=== PATIENT | male | born 1930 | race Caucasian/White ===

== ENCOUNTER → 2016-10-25 | Outpatient (CLI) | payer OTHER, MEDICARE ==
[2016-10-25 10:20] LABS: HEMATOCRIT 45.4 % (37.9-51.0); HEMOGLOBIN 15.1 g/dL (13.5-17.0); HGB HCT DIFFERENCE -0.1; MEAN CORPUSCULAR HEMOGLOBIN 31.2 pg (27.0-33.4); MEAN CORPUSCULAR HGB CONC 33.2 g/dL (32.0-36.0); MEAN CORPUSCULAR VOLUME 94 fl (80-97); RED BLOOD COUNT 4.85 10^6/uL (4.35-5.55); RED CELL DISTRIBUTION WIDTH 13.9 % (11.5-14.0); WHITE BLOOD COUNT 6.9 10^3/uL (4.0-10.5)
[2016-10-25 10:43] LABS: ALANINE AMINOTRANSFERASE 25 U/L (21-72); ALBUMIN 3.7 g/dL (3.5-5.0); ALKALINE PHOSPHATASE 75 U/L (38-126); ANION GAP 8 (5-19); ASPARTATE AMINO TRANSFERASE 23 U/L (17-59); BILIRUBIN,DIRECT 0.3 mg/dL (0.0-0.4); BILIRUBIN,TOTAL 0.8 mg/dL (0.2-1.3); BLOOD UREA NITROGEN 21 mg/dL (7-20); CALCIUM 8.9 mg/dL (8.4-10.2); CARBON DIOXIDE 24 mmol/L (22-30); CHLORIDE 110 mmol/L (98-107); CREATININE RESULT 0.81 mg/dL (0.52-1.25); GLUCOSE 91 mg/dL (75-110); POTASSIUM 4.9 mmol/L (3.6-5.0); SODIUM 141.9 mmol/L (137-145); TOTAL PROTEIN 6.6 g/dL (6.3-8.2)
[2016-10-26 06:38] LABS: THYROXINE (T4) 6.1 ug/dL (4.5-12.0)
== END ==
LOC: OD 09:33
PROVIDERS: ATTEND Specialist
DX: F03.90 Unspecified dementia, unspecified severity, without behavioral disturbance, psychotic disturbance, mood disturbance, and anxiety (principal)
CPT/HCPCS: 36415; 80053; 82607; 84436; 84443; 84480; 85027

== ENCOUNTER 2017-02-02 18:29 | Emergency (ER) | payer OTHER, MEDICARE ==
--- NOTE | 2017-02-02 19:29 | ER Document Report ---
ED General - General Stated Complaint: EYE PROBLEM Time Seen by Provider: 02/02/17 19:06 Notes: Patient is an 86-year-old male comes emergency department for chief complaint of cough which is congested, he comes from [facility] long-term care [facility] by EMS. Patient is non-smoker, no fever reported, when asked why he is here he states he does not know what his eyes have been itchy at times over the past 3 months although he denies any eye irritation, visual loss, or pain at this time. Past medical history of diabetes, CHF, dementia. TRAVEL OUTSIDE OF THE [place] IN LAST 30 DAYS: No - Related Data Allergies/Adverse Reactions: codeine [Codeine] Allergy (Verified 02/02/17 19:35) Penicillins Allergy (Verified 02/02/17 19:35) Past Medical History - General Information source: Patient - Social History Smoking Status: Former Smoker Frequency of alcohol use: None Drug Abuse: None Lives with: Jail Family History: Reviewed & Not Pertinent, Malignancy - Past Medical History Cardiac Medical History: Reports: Hx Atrial Fibrillation, Hx Congestive Heart Failure - Diastolic dysfunction, Hx Coronary Artery Disease, Hx DVT - Left lower extremity, Hx Heart Attack, Hx Hypercholesterolemia, Hx Hypertension Pulmonary Medical History: Reports: Hx COPD Endocrine Medical History: Reports: Hx Diabetes Mellitus Type 2 Psychiatric Medical History: Reports: Hx Dementia, Hx Depression Past Surgical History: Reports: Hx Cardiac Catheterization - 2009, Hx Cholecystectomy, Hx Coronary Stent - 2009 - Immunizations Hx Diphtheria, Pertussis, Tetanus Vaccination: - unknown Hx Pneumococcal Vaccination: 04/17/14 Review of Systems - Review of Systems Constitutional: No symptoms reported EENT: See HPI Cardiovascular: No symptoms reported Respiratory: See HPI Gastrointestinal: No symptoms reported Genitourinary: No symptoms reported Male Genitourinary: No symptoms reported Musculoskeletal: No symptoms reported Skin: No symptoms reported Hematologic/Lymphatic: No symptoms reported Neurological/Psychological: No symptoms reported Physical Exam - Vital signs Vitals: Temp Pulse Resp BP Pulse Ox 98.8 F 75 16 111/56 L 95 02/02/17 20:16 02/02/17 20:16 02/02/17 20:16 02/02/17 20:16 02/02/17 20:16 Interpretation: Normal - General General appearance: Appears well, Alert In distress: None - HEENT Head: Normocephalic, Atraumatic Eyes: Normal. No: Pale conjunctiva, Periorbital ecchymosis, Periorbital edema, Scleral icterus, Tears Conjunctiva: Normal. No: Injected, Purulent discharge Extraocular movements intact: Yes Eyelashes: Normal. No: Matted Pupils: PERRL Nasal: Normal Mouth/Lips: Normal Mucous membranes: Normal Pharynx: Normal Neck: Normal - Respiratory Respiratory status: No respiratory distress. No: Labored, Tachypnea Chest status: Nontender Breath sounds: Nonproductive cough - Occasional episodes of nonproductive cough with some sounds of chest congestion, lung auscultation is clear, no wheezing, rhonchi, stridor, rales Chest palpation: Normal - Cardiovascular Rhythm: Regular Heart sounds: Normal auscultation Murmur: No - Abdominal Inspection: Normal Distension: No distension Bowel sounds: Normal Tenderness: Nontender Organomegaly: No organomegaly - Back Back: Normal, Nontender - Extremities General upper extremity: Normal inspection, Nontender, Normal color, Normal ROM , Normal temperature General lower extremity: Normal inspection, Nontender, Normal color, Normal ROM , Normal temperature, Normal weight bearing. No: Jaden's sign - Neurological Neuro grossly intact: Yes Cognition: Normal Orientation: AAOx4 [place] Coma Scale Eye Opening: Spontaneous [place] Coma Scale Verbal: Oriented [place] Coma Scale Motor: Obeys Commands [place] Coma Scale Total: 15 Speech: Normal Motor strength normal: LUE, RUE, LLE, RLE Sensory: Normal - Psychological Associated symptoms: Normal affect, Normal mood - Skin Skin Temperature: Warm Skin Moisture: Dry Skin Color: Normal Course - Re-evaluation Re-evalutation: Patient does have episodes of a congested cough on examination, lungs are clear otherwise, no hypoxia, no respiratory distress. No discharge, swelling, or other abnormalities noted on examination of his eyes. He denies any current eye complaints. Chest x-ray unremarkable, CBC, chemistry unremarkable, on reevaluation patient remains unchanged with coughing episodes but no signs of respiratory distress and no other abnormalities. Because of patient's age and unknown duration of persisting cough patient will be covered with doxycycline antibiotic for potential underlying developing pneumonia although this is most likely upper respiratory in nature. Patient will be discharged back to custodial facility with return precautions. - Vital Signs Vital signs: Temp Pulse Resp BP Pulse Ox 98.1 F 69 16 121/90 H 98 02/02/17 22:38 10/19/17 22:38 02/02/17 22:38 02/02/17 22:38 02/02/17 22:38 - Laboratory Result Diagrams: 02/02/17 19:57 02/02/17 19:57 Laboratory results interpreted by me: 02/02/17 02/02/17 02/02/17 19:57 19:57 19:57 WBC 10.8 H BUN 22 H Urine Blood SMALL H Discharge - Discharge Clinical Impression: Nonproductive cough Condition: Stable Disposition: HOME, SELF-CARE Additional Instructions: No concerning vital signs no concerning, findings on chest x-ray, unremarkable laboratory workup, influenza test negative. Because of patient's age and his ongoing coughing episodes (including on evaluation here in the emergency department), give patient the doxycycline antibiotic to treat potential developing pneumonia as prescribed. Follow-up with his primary care provider. Return to emergency department for any concerning or worsening symptoms including rapid or labored breathing, spiking fever, or any other concerning symptoms. Prescriptions: Doxycycline Hyclate 100 mg PO BID #14 capsule
--- NOTE | 2017-02-02 20:07 | RADIOLOGY REPORT (SQ) ---
EXAM DESCRIPTION: CHEST PA/LAT COMPLETED DATE/TIME: 02/02/2017 7:46 pm REASON FOR STUDY: productive cough COMPARISON: 01/17/2016. EXAM PARAMETERS: NUMBER OF VIEWS: two views TECHNIQUE: Digital Frontal and Lateral radiographic views of the chest acquired. RADIATION DOSE: NA LIMITATIONS: none FINDINGS: LUNGS AND PLEURA: No opacities, masses or pneumothorax. No pleural effusion. MEDIASTINUM AND HILAR STRUCTURES: No masses or contour abnormalities. HEART AND VASCULAR STRUCTURES: Heart normal size. No evidence for failure. BONES: No acute findings. HARDWARE: None in the chest. OTHER: No other significant finding. IMPRESSION: NO SIGNIFICANT RADIOGRAPHIC FINDING IN THE CHEST. TECHNICAL DOCUMENTATION: JOB ID: [id number] [employer]- All Rights Reserved
[2017-02-02 20:16] LABS: ABSOLUTE BASOPHILS # (AUTO) 0.1 10^3/uL (0.0-0.2); ABSOLUTE EOSINOPHILS # (AUTO) 0.1 10^3/uL (0.0-0.6); ABSOLUTE MONOCYTES (AUTO) 0.8 10^3/uL (0.1-1.4); ABSOLUTE NEUT (AUTO) 6.8 10^3/uL (1.7-8.2); BASOPHILS % (AUTO) 0.6 % (0-2); HEMATOCRIT 44.8 % (37.9-51.0); HEMOGLOBIN 15.5 g/dL (13.5-17.0); HGB HCT DIFFERENCE 1.7; MEAN CORPUSCULAR HEMOGLOBIN 31.6 pg (27.0-33.4); MEAN CORPUSCULAR HGB CONC 34.7 g/dL (32.0-36.0); MEAN CORPUSCULAR VOLUME 91 fl (80-97); RED CELL DISTRIBUTION WIDTH 13.8 % (11.5-14.0); SEGMENTED NEUTROPHILS % (AUTO) 63.4 % (42-78); WHITE BLOOD COUNT 10.8 10^3/uL (4.0-10.5)
[2017-02-02 20:20] LABS: APPEARANCE,URINE CLEAR; BILIRUBIN,URINE NEGATIVE (NEGATIVE); GLUCOSE, URINE NEGATIVE (NEGATIVE); KETONES,URINE NEGATIVE (NEGATIVE); LEUKOCYTE ESTERASE,URINE NEGATIVE (NEGATIVE); NITRITE,URINE NEGATIVE (NEGATIVE); PROTEIN,URINE NEGATIVE (NEGATIVE); URINE SPECIFIC GRAVITY 1.008; UROBILINOGEN,URINE NEGATIVE mg/dL (<2.0)
[2017-02-02 20:40] LABS: ANION GAP 14 (5-19); BLOOD UREA NITROGEN 22 mg/dL (7-20); CALCIUM 9.1 mg/dL (8.4-10.2); CARBON DIOXIDE 23 mmol/L (22-30); CHLORIDE 106 mmol/L (98-107); CREATININE RESULT 0.99 mg/dL (0.52-1.25); GLUCOSE 107 mg/dL (75-110); POTASSIUM 4.3 mmol/L (3.6-5.0); SODIUM 143.4 mmol/L (137-145)
[2017-02-02 22:41] VITALS: BP 121/90
== END 2017-02-02 22:38 | disposition home or self-care (01) ==
LOC: ER 18:29
DX: R05 Cough (principal); J44.9 Chronic obstructive pulmonary disease, unspecified; E11.9 Type 2 diabetes mellitus without complications; I48.91 Unspecified atrial fibrillation; I50.9 Heart failure, unspecified; I25.10 Atherosclerotic heart disease of native coronary artery without angina pectoris; E78.00 Pure hypercholesterolemia, unspecified; I11.0 Hypertensive heart disease with heart failure; Z90.49 Acquired absence of other specified parts of digestive tract; Z88.6 Allergy status to analgesic agent; Z88.0 Allergy status to penicillin; Z86.718 Personal history of other venous thrombosis and embolism; I25.2 Old myocardial infarction
CPT/HCPCS: 36415; 71020; 80048; 81001; 85025; 87804; 99283

== ENCOUNTER 2017-05-02 17:11 | Emergency (ER) | payer OTHER, MEDICARE ==
[2017-05-02 17:40] LABS: APPEARANCE,URINE SLIGHTLY-CLOUDY; BILIRUBIN,URINE NEGATIVE (NEGATIVE); COLOR,URINE YELLOW; GLUCOSE, URINE NEGATIVE (NEGATIVE); KETONES,URINE NEGATIVE (NEGATIVE); LEUKOCYTE ESTERASE,URINE NEGATIVE (NEGATIVE); NITRITE,URINE NEGATIVE (NEGATIVE); PROTEIN,URINE NEGATIVE (NEGATIVE); URINE SPECIFIC GRAVITY 1.023
--- NOTE | 2017-05-02 19:22 | ER Document Report ---
ED General - General Chief Complaint: Altered Mental Status Stated Complaint: ALTERED MENTAL STATUS Time Seen by Provider: 05/02/17 19:08 Notes: Patient is a 86-year-old male that comes emergency department for chief complaint of agitation. He comes from [facility] by EMS. EMS reports the patient is at his baseline with dementia, has had no fever, no vomiting, no other complaints other than becoming very agitated prompting his visit to the emergency department. He states "I'm here because I agreed to come". He denies any complaints or any locations of pain. He is oriented to place, person, but not to events prior to coming here. Other than dementia patient also has a history of diabetes, CHF, schizoaffective disorder with "paranoid episodes". He has DO NOT RESUSCITATE paperwork with his chart brought tonjose f. TRAVEL OUTSIDE OF THE [place] IN LAST 30 DAYS: No - Related Data Allergies/Adverse Reactions: codeine [Codeine] Allergy (Verified 05/02/17 18:17) Penicillins Allergy (Verified 05/02/17 18:17) Past Medical History - General Information source: Patient - Social History Smoking Status: Never Smoker Chew tobacco use (# tins/day): No Frequency of alcohol use: None Drug Abuse: None Lives with: [facility] Family History: Reviewed & Not Pertinent, Malignancy Patient has suicidal ideation: No Patient has homicidal ideation: No - Past Medical History Cardiac Medical History: Reports: Hx Atrial Fibrillation, Hx Congestive Heart Failure - Diastolic dysfunction, Hx Coronary Artery Disease, Hx DVT - Left lower extremity, Hx Heart Attack, Hx Hypercholesterolemia, Hx Hypertension Pulmonary Medical History: Reports: Hx COPD Endocrine Medical History: Reports: Hx Diabetes Mellitus Type 2 Renal/ Medical History: Denies: Hx Peritoneal Dialysis Psychiatric Medical History: Reports: Hx Dementia, Hx Depression Past Surgical History: Reports: Hx Cardiac Catheterization - 2009, Hx Cholecystectomy, Hx Coronary Stent - 2009 - Immunizations Immunizations up to date: Yes Hx Diphtheria, Pertussis, Tetanus Vaccination: Yes - unknown Hx Pneumococcal Vaccination: 04/17/14 Review of Systems - Review of Systems Constitutional: See HPI EENT: No symptoms reported Cardiovascular: No symptoms reported Respiratory: No symptoms reported Gastrointestinal: No symptoms reported Genitourinary: No symptoms reported Male Genitourinary: No symptoms reported Musculoskeletal: No symptoms reported Skin: No symptoms reported Hematologic/Lymphatic: No symptoms reported Neurological/Psychological: See HPI Physical Exam - Vital signs Vitals: Temp Pulse Resp BP Pulse Ox 98.0 F 75 20 135/88 H 98 05/02/17 17:27 05/02/17 17:27 05/02/17 17:27 05/02/17 17:27 05/02/17 17:27 Interpretation: Normal - General General appearance: Appears well, Alert In distress: None - HEENT Head: Normocephalic, Atraumatic Eyes: Normal Conjunctiva: Normal Extraocular movements intact: Yes Eyelashes: Normal Pupils: PERRL Nasal: Normal Mouth/Lips: Normal Mucous membranes: Normal Pharynx: Normal Neck: Normal - Respiratory Respiratory status: No respiratory distress Chest status: Nontender Breath sounds: Normal. No: Decreased air movement, Wheezing Chest palpation: Normal - Cardiovascular Rhythm: Regular. No: Tachycardia Heart sounds: Normal auscultation, S1 appreciated, S2 appreciated Murmur: No - Abdominal Inspection: Normal Distension: No distension Bowel sounds: Normal Tenderness: Nontender Organomegaly: No organomegaly - Back Back: Normal, Nontender. No: Tender - Extremities General upper extremity: Normal inspection, Nontender, Normal ROM, Normal strength General lower extremity: Normal inspection, Nontender, Normal ROM, Normal strength - Neurological Neuro grossly intact: Yes Cognition: Normal Orientation: AAOx4 [place] Coma Scale Eye Opening: Spontaneous [place] Coma Scale Verbal: Oriented [place] Coma Scale Motor: Obeys Commands [place] Coma Scale Total: 15 Speech: Normal Motor strength normal: LUE, RUE, LLE, RLE Sensory: Normal - Psychological Associated symptoms: Normal affect, Normal mood - Skin Skin Temperature: Warm Skin Moisture: Dry Skin Color: Normal Course - Re-evaluation Re-evalutation: Patient alert, cooperative, responsive, is oriented to place, person, however he cannot give me specific details about today. He cooperates with a normal neurological exam otherwise. Vital signs are unremarkable. CBC unremarkable, chemistry unremarkable, urinalysis unremarkable. Patient is at baseline reportedly. I do not see indication for CAT scan of the head at this time or additional workup. Patient only asking for a drink, states he is fine otherwise and he is ready to leave. Patient provided with a drink, discussed his workup, discussed return precautions, these will be written as well, patient will be discharged back to long-term care facility. - Vital Signs Vital signs: Temp Pulse Resp BP Pulse Ox 98.0 F 89 20 142/93 H 97 05/02/17 22:08 05/02/17 22:08 05/02/17 22:08 05/02/17 22:08 05/02/17 22:08 - Laboratory Result Diagrams: 05/02/17 17:50 05/02/17 17:50 Laboratory results interpreted by me: 05/02/17 05/02/17 17:21 17:50 BUN 27 H Urine Urobilinogen 2.0 H Urine Ascorbic Acid 40 H Discharge - Discharge Clinical Impression: Agitation Condition: Stable Disposition: HOME, SELF-CARE Additional Instructions: No concerning abnormalities are noted on evaluation and laboratory workup. Discussed with his primary provider additional treatments for episodes of agitation. Return the emergency department for any concerning symptoms including fever, vomiting, altered mental status, difficulty breathing, or any other concerning symptoms.
[2017-05-02 19:50] LABS: ABSOLUTE EOSINOPHILS # (AUTO) 0.1 10^3/uL (0.0-0.6); ABSOLUTE MONOCYTES (AUTO) 0.7 10^3/uL (0.1-1.4); ABSOLUTE NEUT (AUTO) 4.6 10^3/uL (1.7-8.2); ANION GAP 9 (5-19); BASOPHILS % (AUTO) 0.5 % (0-2); BLOOD UREA NITROGEN 27 mg/dL (7-20); CALCIUM 9.4 mg/dL (8.4-10.2); CARBON DIOXIDE 30 mmol/L (22-30); CHLORIDE 104 mmol/L (98-107); EOSINOPHILS % (AUTO) 0.9 % (0-6); GLUCOSE 98 mg/dL (75-110); HEMATOCRIT 46.6 % (37.9-51.0); HEMOGLOBIN 15.9 g/dL (13.5-17.0); LYMPHOCYTES % (AUTO) 35.6 % (13-45); MEAN CORPUSCULAR HEMOGLOBIN 31.4 pg (27.0-33.4); MEAN CORPUSCULAR HGB CONC 34.2 g/dL (32.0-36.0); MEAN CORPUSCULAR VOLUME 92 fl (80-97); MONOCYTES % (AUTO) 8.1 % (3-13); PLATELET COUNT 211 10^3/uL (150-450); POTASSIUM 4.7 mmol/L (3.6-5.0); RED BLOOD COUNT 5.08 10^6/uL (4.35-5.55); SEGMENTED NEUTROPHILS % (AUTO) 54.9 % (42-78); SODIUM 142.7 mmol/L (137-145); TOTAL CELLS COUNTED % (AUTO) 100 %; WHITE BLOOD COUNT 8.4 10^3/uL (4.0-10.5)
[2017-05-02 22:03] VITALS: BP 142/93
== END 2017-05-02 22:21 | disposition home or self-care (01) ==
LOC: ER 17:11
DX: R45.1 Restlessness and agitation (principal); R41.82 Altered mental status, unspecified; J44.9 Chronic obstructive pulmonary disease, unspecified; E11.9 Type 2 diabetes mellitus without complications; I48.91 Unspecified atrial fibrillation; I50.9 Heart failure, unspecified; Z86.718 Personal history of other venous thrombosis and embolism; Z88.0 Allergy status to penicillin; Z88.6 Allergy status to analgesic agent
CPT/HCPCS: 36415; 80048; 81001; 85025; 99285

== ENCOUNTER 2017-05-11 10:42 | Emergency (ER) | payer OTHER, MEDICARE ==
--- NOTE | 2017-05-11 10:50 | ER Document Report ---
ED General - General Stated Complaint: WEAKNESS Time Seen by Provider: 05/11/17 10:50 Mode of Arrival: Medic Information source: Patient Notes: 86 yr old male hx of dementia presents with care facilities concerns that he is not taking his medications. pt notes 3 days ago he decided he wanted ot and that his plan is to not eat or take meds. TRAVEL OUTSIDE OF THE [place] IN LAST 30 DAYS: No - HPI Onset: Other Onset/Duration: Persistent Quality of pain: No pain Severity: None Pain Level: Denies Associated symptoms: Other Exacerbated by: Denies Relieved by: Denies Similar symptoms previously: Yes Recently seen / treated by doctor: Yes - Related Data Allergies/Adverse Reactions: codeine [Codeine] Allergy (Verified 05/02/17 18:17) NSAIDS (Non-Steroidal Anti-Inflamma Allergy (Verified 05/11/17 10:57) Penicillins Allergy (Verified 05/02/17 18:17) Past Medical History - Social History Smoking Status: Never Smoker Cigarette use (# per day): No Chew tobacco use (# tins/day): No Smoking Education Provided: No Family History: Reviewed & Not Pertinent, Malignancy Patient has suicidal ideation: Yes Patient has homicidal ideation: No - Past Medical History Cardiac Medical History: Reports: Hx Atrial Fibrillation, Hx Congestive Heart Failure - Diastolic dysfunction, Hx Coronary Artery Disease, Hx DVT - Left lower extremity, Hx Heart Attack, Hx Hypercholesterolemia, Hx Hypertension Pulmonary Medical History: Reports: Hx COPD Endocrine Medical History: Reports: Hx Diabetes Mellitus Type 2 Renal/ Medical History: Denies: Hx Peritoneal Dialysis Psychiatric Medical History: Reports: Hx Dementia, Hx Depression Past Surgical History: Reports: Hx Cardiac Catheterization - 2009, Hx Cholecystectomy, Hx Coronary Stent - 2009 - Immunizations Immunizations up to date: Yes Hx Diphtheria, Pertussis, Tetanus Vaccination: Yes - unknown Hx Pneumococcal Vaccination: 04/17/14 Review of Systems - Review of Systems Notes: REVIEW OF SYSTEMS: CONSTITUTIONAL : Denies fever, chills, or sweats. Denies recent illness. EENT: Denies eye, ear, throat, or mouth pain or symptoms. Denies nasal or sinus congestion or discharge. Denies throat, tongue, or mouth swelling or difficulty swallowing. CARDIOVASCULAR: Denies chest pain. Denies palpitations or racing or irregular heart beat. Denies ankle edema. RESPIRATORY: Denies cough, cold, or chest congestion. Denies shortness of breath, difficulty breathing, or wheezing. GASTROINTESTINAL: Denies abdominal pain or distention. Denies nausea, vomiting , or diarrhea. Denies blood in vomitus, stools, or per rectum. Denies black, tarry stools. Denies constipation. GENITOURINARY: Denies difficulty urinating, painful urination, burning, frequency, blood in urine, or discharge. MUSCULOSKELETAL: Denies back or neck pain or stiffness. Denies joint pain or swelling. SKIN: Denies rash, lesions or sores. HEMATOLOGIC : Denies easy bruising or bleeding. LYMPHATIC: Denies swollen, enlarged glands. NEUROLOGICAL: hx of dementia PSYCHIATRIC: Denies anxiety or stress. Denies depression, suicidal ideation, or homicidal ideation. ALL OTHER SYSTEMS REVIEWED AND NEGATIVE. Dictation was performed using [employer] voice recognition software PHYSICAL EXAMINATION: GENERAL: Well-appearing, well-nourished and in no acute distress. HEAD: Atraumatic, normocephalic. EYES: Pupils equal round and reactive to light, extraocular movements intact, sclera anicteric, conjunctiva are normal. ENT: Nares patent, oropharynx clear without exudates. Moist mucous membranes. NECK: Normal range of motion, supple without lymphadenopathy LUNGS: Breath sounds clear to auscultation bilaterally and equal. No wheezes rales or rhonchi. HEART: Regular rate and rhythm without murmurs ABDOMEN: Soft, nontender, nondistended abdomen. No guarding, no rebound. No masses appreciated. Musculoskeletal: Normal range of motion, no pitting or edema. No cyanosis. NEUROLOGICAL: tremors noted SKIN: Warm, Dry, normal turgor, no rashes or lesions noted. Physical Exam - Vital signs Vitals: Pulse Resp BP 78 18 145/89 H 05/11/17 10:51 05/11/17 10:51 05/11/17 10:51 Course - Re-evaluation Re-evalutation: 05/11/17 11:13 pt is alert, hes oriented to person, place. pt notes he wants to end it, has a DNR . I have requested mental health to evaluate the patient. 05/11/17 11:29 Patient is noted to be eating as documented by nursing staff crackers sandwiches pudding juice 05/11/17 12:58 Patient evaluated by mental health, they agree that patient is alert, he is eating and has no signs of wanting ot hurt himself they request medication change, decrease of risperidone which was recently increased and may have caused these issues After performing a Medical Screening Examination, I estimate there is LOW risk for any life threatening mental health issues. At this time the patient looks extremely well and has not attempted severe self harm. I have reevaluated this patient multiple times and no significant life threatening changes are noted. The patient and I have discussed the diagnosis and risks, and we agree with discharging home with close follow-up with the understanding that symptoms and presentations can change. We also discussed returning to the Emergency Department immediately if new or worsening symptoms occur. We have discussed the symptoms which are most concerning (hallucinations, thoughts or actions of self harm or harm to others) that necessitate immediate return. - Vital Signs Vital signs: Temp Pulse Resp BP Pulse Ox 78 18 145/89 H 05/11/17 10:51 05/11/17 10:51 05/11/17 10:51 - Laboratory Result Diagrams: 05/11/17 11:20 05/11/17 11:20 Laboratory results interpreted by me: 05/11/17 11:20 Chloride 109 H BUN 24 H ALT 19 L Discharge - Discharge Clinical Impression: Agitation Dementia Qualifiers: Dementia type: unspecified type Dementia behavioral disturbance: without behavioral disturbance Qualified Code(s): F03.90 - Unspecified dementia without behavioral disturbance Condition: Stable Disposition: HOME, SELF-CARE Additional Instructions: Please decrease the risperidone dosage as written. Patient has been eating and shows no sign of self-harm gesture Prescriptions: Buspirone HCl [Buspar 10 mg Tablet] 10 mg PO QHS #30 tab Buspirone HCl [Buspar 5 mg Tablet] 1 tab PO QAM #30 tab Carbamazepine [Tegretol 200 Mg Tablet] 200 mg PO BID #60 tablet Risperidone [Risperdal 0.25 Mg Tablet] 0.25 mg PO BID #60 tablet
[2017-05-11 11:38] LABS: ABSOLUTE EOSINOPHILS # (AUTO) 0.1 10^3/uL (0.0-0.6); ABSOLUTE LYMPHOCYTES (AUTO) 2.6 10^3/uL (0.5-4.7); ABSOLUTE MONOCYTES (AUTO) 0.5 10^3/uL (0.1-1.4); ABSOLUTE NEUT (AUTO) 4.4 10^3/uL (1.7-8.2); BASOPHILS % (AUTO) 0.4 % (0-2); EOSINOPHILS % (AUTO) 1.3 % (0-6); HEMATOCRIT 46.7 % (37.9-51.0); HEMOGLOBIN 15.9 g/dL (13.5-17.0); LYMPHOCYTES % (AUTO) 34.3 % (13-45); MEAN CORPUSCULAR HEMOGLOBIN 31.2 pg (27.0-33.4); MEAN CORPUSCULAR HGB CONC 34.1 g/dL (32.0-36.0); MEAN CORPUSCULAR VOLUME 92 fl (80-97); MONOCYTES % (AUTO) 7.1 % (3-13); PLATELET COUNT 164 10^3/uL (150-450); RED BLOOD COUNT 5.11 10^6/uL (4.35-5.55); RED CELL DISTRIBUTION WIDTH 13.2 % (11.5-14.0); SEGMENTED NEUTROPHILS % (AUTO) 56.9 % (42-78); TOTAL CELLS COUNTED % (AUTO) 100 %; WHITE BLOOD COUNT 7.7 10^3/uL (4.0-10.5)
[2017-05-11 11:57] LABS: ALANINE AMINOTRANSFERASE 19 U/L (21-72); ALBUMIN 3.6 g/dL (3.5-5.0); ALKALINE PHOSPHATASE 71 U/L (38-126); ANION GAP 6 (5-19); ASPARTATE AMINO TRANSFERASE 23 U/L (17-59); BILIRUBIN,DIRECT 0.2 mg/dL (0.0-0.4); BLOOD UREA NITROGEN 24 mg/dL (7-20); CALCIUM 9.2 mg/dL (8.4-10.2); CARBON DIOXIDE 27 mmol/L (22-30); CHLORIDE 109 mmol/L (98-107); GLUCOSE 100 mg/dL (75-110); POTASSIUM 4.3 mmol/L (3.6-5.0); TOTAL PROTEIN 6.4 g/dL (6.3-8.2)
--- NOTE | 2017-05-11 13:12 | PSYCHOLOGICAL NOTE ---
Psych Note - Psych Note Psych Note: Reason for Consult: Suicidal Ideation Consents given: None Patient is an 86 year old male who presented to the Emergency Department via EMS from [facility], his care home care facility. Facility staff reported the patient has had a definite change in mental status within the last week. They reported patient has been making statements about his home being taken away and the facility "putting him out." The facility staff stated the patient started saying "I want to ." Facility staff reported the patient is refusing to eat or take his medications since yesterday. They stated the patient 's brother and sister, who live in [place], visited on Monday and the patient seemed "happier" and had increased affect while they were here. Staff reported the patient has a history of "paranoia, restless legs, dementia and diabetes." Patient was sitting upright in bed eating a snack with an open drink at his side. Patient was pleasant and calm. Patient stated he is hard of hearing. Patient was alert and oriented to person, place, and circumstance. Mood was calm with congruent affect. Patient denied current suicidal/homicidal ideation, intent or plan. He did not appear to be responding to internal stimuli and no delusions or psychosis noted. Patient has a diagnosis of dementia. 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 He does not meet [place] G.S 122C IVC criteria. Patient is not considered a danger to himself or others at this time. No delusions or psychosis were observed. Patient denied suicidal/ homicidal ideation, intent or plan. Patient lives in a care home care facility and per [place] state statue he is monitored 07/11 and does not have access to medications or weapons. Patient has a history of dementia. Medication recommendations were made to reduce his dose of Risperdone to 0.25mg BID and add Tegretol 200mg BID and Buspar 5mg qa and 10mg qhs. Consulted with Dr. Garcia regarding the care and management of this patient. ED physician in agreement with recommendations and disposition.
[2017-05-11 14:31] VITALS: BP 135/73
== END 2017-05-11 14:31 | disposition home health service (06) ==
LOC: ER 10:42
DX: R45.1 Restlessness and agitation (principal); F03.90 Unspecified dementia, unspecified severity, without behavioral disturbance, psychotic disturbance, mood disturbance, and anxiety; R53.1 Weakness
CPT/HCPCS: 36415; 80053; 85025; 99285

== ENCOUNTER 2017-07-09 18:00 | Emergency (ER) | payer OTHER, MEDICARE ==
[2017-07-09 19:09] LABS: ABSOLUTE MONOCYTES (AUTO) 0.4 10^3/uL (0.1-1.4); ABSOLUTE NEUT (AUTO) 3.7 10^3/uL (1.7-8.2); BASOPHILS % (AUTO) 0.4 % (0-2); EOSINOPHILS % (AUTO) 0.7 % (0-6); HEMATOCRIT 47.7 % (37.9-51.0); LYMPHOCYTES % (AUTO) 32.5 % (13-45); MEAN CORPUSCULAR HEMOGLOBIN 30.8 pg (27.0-33.4); MEAN CORPUSCULAR HGB CONC 33.6 g/dL (32.0-36.0); MEAN CORPUSCULAR VOLUME 92 fl (80-97); MONOCYTES % (AUTO) 6.8 % (3-13); PLATELET COUNT 173 10^3/uL (150-450); RED CELL DISTRIBUTION WIDTH 13.9 % (11.5-14.0); SEGMENTED NEUTROPHILS % (AUTO) 59.6 % (42-78); TOTAL CELLS COUNTED % (AUTO) 100 %; WHITE BLOOD COUNT 6.2 10^3/uL (4.0-10.5)
--- NOTE | 2017-07-09 19:25 | ER Document Report ---
ED General - General Chief Complaint: Psych Problem Stated Complaint: ALTERED MENTAL STATUS Time Seen by Provider: 07/09/17 18:58 Cannot obtain history due to: Dementia, Other - Speech impairment Notes: Patient is an 86-year-old male with past history of dementia who presents with facility concerns that he has become more agitated for the past 1 week. The patient is demented, has impaired speech at baseline but denies any acute complaints. EMS reports the patient was initially somewhat agitated when they got there but was easily calmed down when they listened to him. History is otherwise limited secondary to patient's baseline cognitive status. TRAVEL OUTSIDE OF THE [place] IN LAST 30 DAYS: No - Related Data Allergies/Adverse Reactions: codeine [Codeine] Allergy (Verified 07/09/17 18:10) NSAIDS (Non-Steroidal Anti-Inflamma Allergy (Verified 07/09/17 18:10) Penicillins Allergy (Verified 07/09/17 18:10) Past Medical History - General Information source: Patient, Transfer Record, Emergency Med Personnel Cannot obtain history due to: Dementia - Social History Smoking Status: Never Smoker Chew tobacco use (# tins/day): No Frequency of alcohol use: None Drug Abuse: None Lives with: Assisted Family History: Reviewed & Not Pertinent, Malignancy Patient has suicidal ideation: No Patient has homicidal ideation: No - Past Medical History Cardiac Medical History: Reports: Hx Atrial Fibrillation, Hx Congestive Heart Failure - Diastolic dysfunction, Hx Coronary Artery Disease, Hx DVT - Left lower extremity, Hx Heart Attack, Hx Hypercholesterolemia, Hx Hypertension Pulmonary Medical History: Reports: Hx COPD Endocrine Medical History: Reports: Hx Diabetes Mellitus Type 2 Renal/ Medical History: Denies: Hx Peritoneal Dialysis Psychiatric Medical History: Reports: Hx Dementia, Hx Depression Past Surgical History: Reports: Hx Cardiac Catheterization - 2009, Hx Cholecystectomy, Hx Coronary Stent - 2009 - Immunizations Immunizations up to date: Yes Hx Diphtheria, Pertussis, Tetanus Vaccination: Yes - unknown Hx Pneumococcal Vaccination: 04/17/14 Review of Systems - Review of Systems Notes: Constitutional: Negative for fever. HENT: Negative for sore throat. Eyes: Negative for visual changes. Cardiovascular: Negative for chest pain. Respiratory: Negative for shortness of breath. Gastrointestinal: Negative for abdominal pain, vomiting or diarrhea. Genitourinary: Negative for dysuria. Musculoskeletal: Negative for back pain. Skin: Negative for rash. Neurological: Negative for headaches, weakness or numbness. 10 point ROS negative except as marked above and in HPI. Physical Exam - Vital signs Vitals: Temp Pulse Resp BP Pulse Ox 97.4 F 74 20 153/98 H 95 07/09/17 18:00 07/09/17 18:00 07/09/17 18:00 07/09/17 18:00 07/09/17 18:00 Interpretation: Hypertensive Notes: PHYSICAL EXAMINATION: GENERAL: Appears stated age. Well-appearing, well-nourished and in no acute distress. HEAD: Atraumatic, normocephalic. EYES: Pupils equal round and reactive to light, extraocular movements intact, sclera anicteric, conjunctiva are normal. ENT: nares patent, oropharynx clear without exudates. Moderate dry mucous membranes. NECK: Normal range of motion, supple without lymphadenopathy LUNGS: Breath sounds clear to auscultation bilaterally and equal. No wheezes rales or rhonchi. HEART: Regular rate and rhythm without murmurs ABDOMEN: Soft, nontender, normoactive bowel sounds. No guarding, no rebound. No masses appreciated. EXTREMITIES: Normal range of motion, no pitting or edema. No cyanosis. NEUROLOGICAL: No focal neurological deficits. Moves all extremities spontaneously and on command. PSYCH: Impaired speech, calm, no signs of aggression or combativeness.. SKIN: Warm, Dry, normal turgor, no rashes or lesions noted. Course - Re-evaluation Re-evalutation: 07/09/17 19:23 Patient presents from his nursing facility with alleged aggression although EMS reports that when they got there the patient reportedly was upset because nobody would listen to him. After they listened and talk to the patient to calm down him has been cooperative since that time. To me the patient is calm, polite, and at his baseline with some slurred speech. He is alert, oriented to situation. He does not demonstrate any agitation or combative nature. I do not see an indication for a medical workup and patient declines such an evaluation. His physical examination medical screening exam is otherwise unremarkable. He is cleared for discharge back to the nursing facility with outpatient follow-up. - Vital Signs Vital signs: Temp Pulse Resp BP Pulse Ox 97.4 F 74 20 159/83 H 95 07/09/17 18:00 07/09/17 18:00 07/09/17 20:03 07/09/17 20:03 07/09/17 20:03 - Laboratory Result Diagrams: 07/09/17 18:20 Discharge - Discharge Clinical Impression: Agitation Dementia Qualifiers: Dementia type: unspecified type Dementia behavioral disturbance: without behavioral disturbance Qualified Code(s): F03.90 - Unspecified dementia without behavioral disturbance Condition: Good Disposition: HOME-SNF (ED ONLY) Additional Instructions: Please return to the emergency room immediately if you experience any concerning symptoms including high fevers, severe headache, chest pain, difficulty breathing, abdominal pain, slurred speech, numbness or weakness in your arms or legs, or any other symptom that concerns you.
[2017-07-09 20:13] VITALS: BP 159/83
== END 2017-07-09 20:26 ==
LOC: ER 18:00
DX: R45.1 Restlessness and agitation (principal); F03.90 Unspecified dementia, unspecified severity, without behavioral disturbance, psychotic disturbance, mood disturbance, and anxiety; R47.81 Slurred speech; I10 Essential (primary) hypertension; I25.10 Atherosclerotic heart disease of native coronary artery without angina pectoris; I25.2 Old myocardial infarction; J44.9 Chronic obstructive pulmonary disease, unspecified; E11.9 Type 2 diabetes mellitus without complications; Z88.5 Allergy status to narcotic agent; Z88.8 Allergy status to other drugs, medicaments and biological substances; Z88.0 Allergy status to penicillin
CPT/HCPCS: 36415; 85025; 99285

== ENCOUNTER 2017-11-20 12:31 | Emergency (ER) | payer OTHER, MEDICARE ==
--- NOTE | 2017-11-20 13:29 | ER Document Report ---
ED General - General Mode of Arrival: Ambulatory Information source: Patient TRAVEL OUTSIDE OF THE [place] IN LAST 30 DAYS: No <BRENDA CALABRESE - Last Filed: 11/20/17 18:24> <CATHERINE ALEXANDRA - Last Filed: 11/20/17 18:39> - General Chief Complaint: Anxiety Stated Complaint: ANXIETY Time Seen by Provider: 11/20/17 13:18 Notes: Patient is an 87 year old male who was sent to the emergency department via EMS from [facility] complaining of confusion and suicidal ideation. According to [facility], patient was refusing to take his medication and stated he was going to hurt himself and his roommate. When asked directly, patient states that he did want to hurt himself and his roommate but does not currently want to do so. Patient denies any pain, vomiting or difficulty breathing. (BRENDA CALABRESE) - Related Data Allergies/Adverse Reactions: codeine [Codeine] Allergy (Verified 07/09/17 18:10) NSAIDS (Non-Steroidal Anti-Inflamma Allergy (Verified 07/09/17 18:10) Penicillins Allergy (Verified 07/09/17 18:10) Past Medical History - General Information source: Patient - Social History Smoking Status: Never Smoker Chew tobacco use (# tins/day): No Frequency of alcohol use: None Drug Abuse: None Family History: Reviewed & Not Pertinent, Malignancy Patient has suicidal ideation: No Patient has homicidal ideation: No - Past Medical History Cardiac Medical History: Reports: Hx Atrial Fibrillation, Hx Congestive Heart Failure - Diastolic dysfunction, Hx Coronary Artery Disease, Hx DVT - Left lower extremity, Hx Heart Attack, Hx Hypercholesterolemia, Hx Hypertension Pulmonary Medical History: Reports: Hx COPD Endocrine Medical History: Reports: Hx Diabetes Mellitus Type 2 Psychiatric Medical History: Reports: Hx Dementia, Hx Depression Past Surgical History: Reports: Hx Cardiac Catheterization - 2009, Hx Cholecystectomy, Hx Coronary Stent - 2009 - Immunizations Immunizations up to date: Yes Hx Diphtheria, Pertussis, Tetanus Vaccination: Yes - unknown Hx Pneumococcal Vaccination: 04/17/14 <BRENDA CALABRESE - Last Filed: 11/20/17 18:24> Review of Systems - Review of Systems Constitutional: No symptoms reported EENT: No symptoms reported Cardiovascular: No symptoms reported Respiratory: No symptoms reported Gastrointestinal: No symptoms reported Genitourinary: No symptoms reported Male Genitourinary: No symptoms reported Musculoskeletal: No symptoms reported Skin: No symptoms reported Hematologic/Lymphatic: No symptoms reported Neurological/Psychological: See HPI -: Yes All other systems reviewed and negative <BHARATITIGRELATRICE - Last Filed: 11/20/17 18:24> Physical Exam <BHARATITIGRELATRICE - Last Filed: 11/20/17 18:24> <CATHERINE ALEXANDRA - Last Filed: 11/20/17 18:39> - Vital signs Vitals: Temp Pulse Resp BP Pulse Ox 97.5 F 64 16 100/71 96 11/20/17 12:49 11/20/17 12:49 11/20/17 12:49 11/20/17 12:49 11/20/17 12:49 - Notes Notes: GENERAL: Alert, interacts well. No acute distress. HEAD: Normocephalic, atraumatic. EYES: Pupils equal, round, and reactive to light. Extraocular movements intact. ENT: Oral mucosa moist, tongue midline. NECK: Full range of motion. Supple. Trachea midline. LUNGS: Clear to auscultation bilaterally, no wheezes, rales, or rhonchi. No respiratory distress. HEART: Regular rate and rhythm. No murmurs, gallops, or rubs. ABDOMEN: Soft, non-tender. Non-distended. Bowel sounds present in all 4 quadrants. EXTREMITIES: Moves all 4 extremities spontaneously. No edema, radial and dorsalis pedis pulses 2/4 bilaterally. No cyanosis. NEUROLOGICAL: Alert and oriented to person, place and situation, states he does not pay attention to the year. Mumbling speech. Biceps and patellar DTRs 2+ bilaterally. 5/5 leasing agent strength bilaterally. 5/5 motor strength. 5/5 great toe dorsiflexion. PSYCH: Normal affect, normal mood. SKIN: Warm, dry, normal turgor. No rashes or lesions noted. (BHARATIBRENDA) Course - Laboratory Result Diagrams: 11/20/17 15:00 11/20/17 15:00 <BRENDA CALABRESE - Last Filed: 11/20/17 18:24> - Laboratory Result Diagrams: 11/20/17 15:00 11/20/17 15:00 <CATHERINE ALEXANDRA - Last Filed: 11/20/17 18:39> - Re-evaluation Re-evalutation: 11/20/17 18:25 CBC unremarkable, chemistries grossly unremarkable, urinalysis shows 20 of ketones but no other evidence of dehydration or infection. Chest x-ray shows no acute process. Behavioral health did see the patient, agrees that the patient is not a danger to himself or other people, does recommend adding 11/20/17 18:35 Behavioral health also recommends changing his Risperdone 0.25 mg as needed to scheduling it at 8 AM and 3 PM every day. This recommendation will be sent to the [facility] and they also recommend starting Depakote 500 mg twice a day. 11/20/17 18:37 (CATHERINE ALEXANDRA) - Vital Signs Vital signs: Temp Pulse Resp BP Pulse Ox 97.5 F 64 16 100/71 96 11/20/17 12:49 11/20/17 12:49 11/20/17 12:49 11/20/17 12:49 11/20/17 12:49 - Laboratory Laboratory results interpreted by me: 11/20/17 11/20/17 11/20/17 15:00 15:00 17:28 RDW 14.1 H Chloride 109 H BUN 28 H ALT 17 L Albumin 3.3 L Urine Protein 30 H Urine Ketones 20 H Urine Urobilinogen 2.0 H Discharge <BRENDA CALABRESE - Last Filed: 11/20/17 18:24> <CATHERINE ALEXANDRA - Last Filed: 11/20/17 18:39> - Discharge Clinical Impression: Dementia Qualifiers: Dementia type: unspecified type Dementia behavioral disturbance: with behavioral disturbance Qualified Code(s): F03.91 - Unspecified dementia with behavioral disturbance Condition: Stable Disposition: OTHER Instructions: Anxiety ([facility]) Additional Instructions: There were no abnormalities on his laboratory studies today that would explain why he is more agitated than usual. Patient was assessed by our behavioral health team and he has not been found to be a danger to himself or other people. They do recommend changing his risperidone to 0.25 mg scheduled rather than as needed, recommend giving it at 8 AM and 3 PM every day. They also recommend adding Depakote 500 mg twice a day. I have written a prescription for this. Prescriptions: Divalproex Sodium [Depakote] 500 mg PO BID #30 tablet.dr Sheikh Attestation: 11/20/17 18:39 I personally performed the services described in the documentation, reviewed and edited the documentation which was dictated to the scribe in my presence, and it accurately records my words and actions. (CATHERINE ALEXANDRA) Samiribe Documentation - Scribe Written by Kori:: Kori Ernst, 11/20/2017 14:26 acting as scribe for :: Carlos <BRENDA CALABRESE - Last Filed: 11/20/17 18:24>
--- NOTE | 2017-11-20 14:27 | RADIOLOGY REPORT (SQ) ---
EXAM DESCRIPTION: CHEST 2 VIEWS COMPLETED DATE/TIME: 11/20/2017 2:20 pm REASON FOR STUDY: altered mental status COMPARISON: January 2016 EXAM PARAMETERS: NUMBER OF VIEWS: two views TECHNIQUE: Digital Frontal and Lateral radiographic views of the chest acquired. RADIATION DOSE: NA LIMITATIONS: none FINDINGS: LUNGS AND PLEURA: No opacities, masses or pneumothorax. No pleural effusion. MEDIASTINUM AND HILAR STRUCTURES: No masses or contour abnormalities. HEART AND VASCULAR STRUCTURES: Heart normal size. No evidence for failure. BONES: No acute findings. HARDWARE: None in the chest. OTHER: No other significant finding. IMPRESSION: NO ACUTE RADIOGRAPHIC FINDING IN THE CHEST. TECHNICAL DOCUMENTATION: JOB ID: [id number] [employer]- All Rights Reserved Reading location - IP/workstation name: [email or web address]
[2017-11-20 15:27] LABS: ABSOLUTE EOSINOPHILS # (AUTO) 0.1 10^3/uL (0.0-0.6); ABSOLUTE LYMPHOCYTES (AUTO) 2.2 10^3/uL (0.5-4.7); ABSOLUTE MONOCYTES (AUTO) 0.6 10^3/uL (0.1-1.4); ABSOLUTE NEUT (AUTO) 5.1 10^3/uL (1.7-8.2); BASOPHILS % (AUTO) 0.4 % (0-2); EOSINOPHILS % (AUTO) 1.5 % (0-6); HEMATOCRIT 45.9 % (37.9-51.0); HEMOGLOBIN 15.4 g/dL (13.5-17.0); LYMPHOCYTES % (AUTO) 27.8 % (13-45); MEAN CORPUSCULAR HEMOGLOBIN 29.9 pg (27.0-33.4); MEAN CORPUSCULAR HGB CONC 33.5 g/dL (32.0-36.0); MEAN CORPUSCULAR VOLUME 89 fl (80-97); MONOCYTES % (AUTO) 6.8 % (3-13); PLATELET COUNT 186 10^3/uL (150-450); RED BLOOD COUNT 5.14 10^6/uL (4.35-5.55); RED CELL DISTRIBUTION WIDTH 14.1 % (11.5-14.0); SEGMENTED NEUTROPHILS % (AUTO) 63.5 % (42-78); TOTAL CELLS COUNTED % (AUTO) 100 %; WHITE BLOOD COUNT 8.1 10^3/uL (4.0-10.5)
[2017-11-20 15:42] LABS: ALANINE AMINOTRANSFERASE 17 U/L (21-72); ALBUMIN 3.3 g/dL (3.5-5.0); ALKALINE PHOSPHATASE 79 U/L (38-126); ANION GAP 11 (5-19); ASPARTATE AMINO TRANSFERASE 22 U/L (17-59); BILIRUBIN,DIRECT 0.2 mg/dL (0.0-0.4); BILIRUBIN,TOTAL 0.9 mg/dL (0.2-1.3); BLOOD UREA NITROGEN 28 mg/dL (7-20); CARBON DIOXIDE 23 mmol/L (22-30); CHLORIDE 109 mmol/L (98-107); GLUCOSE 97 mg/dL (75-110); POTASSIUM 4.8 mmol/L (3.6-5.0); SODIUM 142.5 mmol/L (137-145); TOTAL PROTEIN 6.3 g/dL (6.3-8.2)
[2017-11-20 18:08] LABS: APPEARANCE,URINE SLIGHTLY-CLOUDY; BILIRUBIN,URINE NEGATIVE (NEGATIVE); GLUCOSE, URINE NEGATIVE (NEGATIVE); KETONES,URINE 20 mg/dL (NEGATIVE); LEUKOCYTE ESTERASE,URINE NEGATIVE (NEGATIVE); NITRITE,URINE NEGATIVE (NEGATIVE); PROTEIN,URINE 30 mg/dL (NEGATIVE); URINE SPECIFIC GRAVITY 1.026
[2017-11-20 18:16] LABS: COLOR,URINE YELLOW
[2017-11-21 02:06] VITALS: BP 111/74
== END 2017-11-21 02:21 | disposition other institution (70) ==
LOC: ER 12:31
DX: F03.91 Unspecified dementia, unspecified severity, with behavioral disturbance (principal); F41.9 Anxiety disorder, unspecified; I48.91 Unspecified atrial fibrillation; I50.9 Heart failure, unspecified; Z86.718 Personal history of other venous thrombosis and embolism; Z90.49 Acquired absence of other specified parts of digestive tract
CPT/HCPCS: 36415; 71046; 80053; 81001; 85025; 99284

== ENCOUNTER 2018-01-17 17:41 | Emergency (ER) | payer OTHER, MEDICARE ==
[2018-01-17 18:54] LABS: APPEARANCE,URINE CLEAR; BILIRUBIN,URINE NEGATIVE (NEGATIVE); COLOR,URINE YELLOW; GLUCOSE, URINE NEGATIVE (NEGATIVE); KETONES,URINE NEGATIVE (NEGATIVE); LEUKOCYTE ESTERASE,URINE NEGATIVE (NEGATIVE); NITRITE,URINE NEGATIVE (NEGATIVE); PROTEIN,URINE NEGATIVE (NEGATIVE); URINE SPECIFIC GRAVITY 1.018
[2018-01-17 18:55] LABS: ABSOLUTE EOSINOPHILS # (AUTO) 0.4 10^3/uL (0.0-0.6); ABSOLUTE LYMPHOCYTES (AUTO) 1.7 10^3/uL (0.5-4.7); ABSOLUTE MONOCYTES (AUTO) 0.8 10^3/uL (0.1-1.4); ABSOLUTE NEUT (AUTO) 6.8 10^3/uL (1.7-8.2); BASOPHILS % (AUTO) 0.4 % (0-2); EOSINOPHILS % (AUTO) 4.3 % (0-6); HEMATOCRIT 43.6 % (37.9-51.0); HEMOGLOBIN 14.7 g/dL (13.5-17.0); LYMPHOCYTES % (AUTO) 17.6 % (13-45); MEAN CORPUSCULAR HEMOGLOBIN 30.1 pg (27.0-33.4); MEAN CORPUSCULAR HGB CONC 33.8 g/dL (32.0-36.0); MEAN CORPUSCULAR VOLUME 89 fl (80-97); MONOCYTES % (AUTO) 7.8 % (3-13); PLATELET COUNT 207 10^3/uL (150-450); RED CELL DISTRIBUTION WIDTH 15.2 % (11.5-14.0); SEGMENTED NEUTROPHILS % (AUTO) 69.9 % (42-78); TOTAL CELLS COUNTED % (AUTO) 100 %; WHITE BLOOD COUNT 9.7 10^3/uL (4.0-10.5)
[2018-01-17 19:40] LABS: ALANINE AMINOTRANSFERASE 28 U/L (21-72); ALBUMIN 3.1 g/dL (3.5-5.0); ALKALINE PHOSPHATASE 70 U/L (38-126); ANION GAP 6 (5-19); ASPARTATE AMINO TRANSFERASE 28 U/L (17-59); BILIRUBIN,DIRECT 0.4 mg/dL (0.0-0.4); BILIRUBIN,TOTAL 0.5 mg/dL (0.2-1.3); BLOOD UREA NITROGEN 25 mg/dL (7-20); CALCIUM 8.5 mg/dL (8.4-10.2); CARBON DIOXIDE 28 mmol/L (22-30); CHLORIDE 107 mmol/L (98-107); GLUCOSE 104 mg/dL (75-110); POTASSIUM 4.6 mmol/L (3.6-5.0); SODIUM 140.6 mmol/L (137-145); TOTAL PROTEIN 6.3 g/dL (6.3-8.2)
[2018-01-17] MEDS ORDERED: DIVALPROEX SODIUM 500 MG TAB.SR.24H PO ONE (19:58)
--- NOTE | 2018-01-17 20:51 | ER Document Report ---
ED General - General Chief Complaint: Altered Mental Status Stated Complaint: ALTERED MENTAL STATUS Time Seen by Provider: 01/17/18 17:50 TRAVEL OUTSIDE OF THE [place] IN LAST 30 DAYS: No - HPI Patient complains to provider of: Combative Notes: According to EMS report from [facility] notes patient became combative today also has not been eating or drinking patient has a history of dementia along with possible schizoaffective disorder. Patient according EMS was not combative during transport. Patient baseline mental status. Upon my evaluation patient slightly confused patient states that he has persisted to drink earlier today was not given possible etiology of why the patient became mad. Patient otherwise denies any complaints denies any fevers chills denies any new pain denies chest pain abdominal pain. Patient is able to answer a few questions however most HPI is obtained from [facility] notes - Related Data Allergies/Adverse Reactions: codeine [Codeine] Allergy (Verified 01/17/18 18:07) NSAIDS (Non-Steroidal Anti-Inflamma Allergy (Verified 01/17/18 18:07) Penicillins Allergy (Verified 01/17/18 18:07) Past Medical History - Social History Smoking Status: Unknown if Ever Smoked Family History: Reviewed & Not Pertinent, Malignancy Patient has suicidal ideation: No Patient has homicidal ideation: No - Past Medical History Cardiac Medical History: Reports: Hx Atrial Fibrillation, Hx Congestive Heart Failure - Diastolic dysfunction, Hx Coronary Artery Disease, Hx DVT - Left lower extremity, Hx Heart Attack, Hx Hypercholesterolemia, Hx Hypertension Pulmonary Medical History: Reports: Hx COPD Endocrine Medical History: Reports: Hx Diabetes Mellitus Type 2 Renal/ Medical History: Denies: Hx Peritoneal Dialysis Psychiatric Medical History: Reports: Hx Dementia, Hx Depression Past Surgical History: Reports: Hx Cardiac Catheterization - 2009, Hx Cholecystectomy, Hx Coronary Stent - 2009 - Immunizations Immunizations up to date: Yes Hx Diphtheria, Pertussis, Tetanus Vaccination: Yes - unknown Hx Pneumococcal Vaccination: 04/17/14 Review of Systems - Review of Systems -: Yes ROS unobtainable due to patient's medical condition - History of dementia Physical Exam - Vital signs Vitals: Resp 21 H 01/17/18 17:50 Interpretation: Normal - General General appearance: Appears well, Alert - HEENT Head: Normocephalic, Atraumatic Eyes: Normal Pupils: PERRL - Respiratory Respiratory status: No respiratory distress Chest status: Nontender Breath sounds: Normal Chest palpation: Normal - Cardiovascular Rhythm: Regular Heart sounds: Normal auscultation Murmur: No - Abdominal Inspection: Normal Distension: No distension Bowel sounds: Normal Tenderness: Nontender Organomegaly: No organomegaly - Back Back: Normal, Nontender - Extremities General upper extremity: Normal inspection, Nontender, Normal color, Normal temperature General lower extremity: Normal inspection, Nontender, Normal color, Normal temperature - Neurological Neuro grossly intact: Yes - Psychological Associated symptoms: Normal mood - Skin Skin Temperature: Warm Skin Moisture: Dry Skin Color: Normal Course - Re-evaluation Re-evalutation: 01/17/18 23:04 Patient patient laboratory studies performed showing no signs of infection. Patient was able tolerate p.o. here in the ER he remained calm and cooperative during his stay here patient's Depakote level was subtherapeutic patient was given a dose of Depakote no critical pathology seen patient discharged back to [facility]. - Vital Signs Vital signs: Temp Pulse Resp BP Pulse Ox 98.9 F 22 H 118/70 97 01/17/18 22:01 01/17/18 22:01 01/17/18 22:01 01/17/18 22:01 - Laboratory Result Diagrams: 01/17/18 17:43 01/17/18 19:10 Laboratory results interpreted by me: 01/17/18 01/17/18 01/17/18 17:43 18:30 19:10 RDW 15.2 H BUN 25 H Albumin 3.1 L Urine Urobilinogen 4.0 H Valproic Acid 33.2 L Discharge - Discharge Clinical Impression: Reported combative behavior, Subtherapeutic Depakote level Condition: Good Disposition: HOME, SELF-CARE Additional Instructions: Patient was seen and evaluated here in ER for reported combative behavior. Patient has been pleasant during his ER stay here had no combative behavior. Patient has been able to tolerate p.o. here as well in the ER. Laboratory studies show that his Depakote level is slightly subtherapeutic at 33.4. Would recommend continuing his Depakote for mood stabilizer following up with his primary care physician. No signs of urinary tract infection or any other worrisome etiologies patient discharged home.
[2018-01-17 22:11] VITALS: BP 118/70
== END 2018-01-17 22:26 | disposition home or self-care (01) ==
LOC: ER 17:41
DX: F03.91 Unspecified dementia, unspecified severity, with behavioral disturbance (principal); I25.10 Atherosclerotic heart disease of native coronary artery without angina pectoris; I10 Essential (primary) hypertension; I25.2 Old myocardial infarction; E11.9 Type 2 diabetes mellitus without complications; Z88.5 Allergy status to narcotic agent; Z88.8 Allergy status to other drugs, medicaments and biological substances; Z88.0 Allergy status to penicillin
CPT/HCPCS: 99285; 36415; 85025; 80053; 81001; 80164; C1758

== ENCOUNTER 2018-03-15 16:20 | Emergency (ER) | payer OTHER, MEDICARE ==
[2018-03-15] MEDS ORDERED: NORMAL SALINE 1000 ML 1,000 ML IV ONE (17:32)
--- NOTE | 2018-03-15 17:35 | ER Document Report ---
ED General - General Chief Complaint: Medical Complaint Stated Complaint: WEAKNESS Time Seen by Provider: 03/15/18 17:26 TRAVEL OUTSIDE OF THE [place] IN LAST 30 DAYS: No - HPI Patient complains to provider of: Generalized weakness Notes: Patient sent from [facility] for complaints of decreased appetite, refusing meds and generalized weakness patient himself is unable to provide me with any further information regarding his complaint as he has quite slurred speech with dry oral mucosa, he is moving all extremities and is able to deny any pain - Related Data Allergies/Adverse Reactions: codeine [Codeine] Allergy (Verified 01/17/18 18:07) NSAIDS (Non-Steroidal Anti-Inflamma Allergy (Verified 01/17/18 18:07) Penicillins Allergy (Verified 01/17/18 18:07) Past Medical History - General Information source: Outside Facility Records - Social History Smoking Status: Unknown if Ever Smoked Family History: Reviewed & Not Pertinent, Malignancy Patient has suicidal ideation: No Patient has homicidal ideation: No - Past Medical History Cardiac Medical History: Reports: Hx Atrial Fibrillation, Hx Congestive Heart Failure - Diastolic dysfunction, Hx Coronary Artery Disease, Hx DVT - Left lower extremity, Hx Heart Attack, Hx Hypercholesterolemia, Hx Hypertension Pulmonary Medical History: Reports: Hx COPD Endocrine Medical History: Reports: Hx Diabetes Mellitus Type 2 Renal/ Medical History: Denies: Hx Peritoneal Dialysis Psychiatric Medical History: Reports: Hx Dementia, Hx Depression Past Surgical History: Reports: Hx Cardiac Catheterization - 2009, Hx Cholecystectomy, Hx Coronary Stent - 2009 - Immunizations Immunizations up to date: Yes Hx Diphtheria, Pertussis, Tetanus Vaccination: Yes - unknown Hx Pneumococcal Vaccination: 04/17/14 Review of Systems - Review of Systems Constitutional: See HPI EENT: No symptoms reported Cardiovascular: No symptoms reported Respiratory: No symptoms reported Gastrointestinal: See HPI Genitourinary: No symptoms reported Male Genitourinary: No symptoms reported Musculoskeletal: No symptoms reported Skin: No symptoms reported Hematologic/Lymphatic: No symptoms reported Neurological/Psychological: No symptoms reported -: Yes All other systems reviewed and negative Physical Exam - Vital signs Vitals: Temp Pulse Resp BP 98.6 F 72 20 100/65 03/15/18 16:43 03/15/18 16:43 03/15/18 16:43 03/15/18 16:43 Interpretation: Normal - General General appearance: Alert In distress: None - HEENT Head: Normocephalic, Atraumatic Eyes: Normal Pupils: PERRL - Respiratory Respiratory status: No respiratory distress Chest status: Nontender Breath sounds: Normal Chest palpation: Normal - Cardiovascular Rhythm: Regular Heart sounds: Normal auscultation Murmur: No - Abdominal Inspection: Normal Distension: No distension Bowel sounds: Normal Tenderness: Nontender Organomegaly: No organomegaly - Back Back: Normal, Nontender - Extremities General upper extremity: Nontender, Normal ROM, Normal temperature, Other - Multiple excoriations and small abrasions with ecchymosis General lower extremity: Normal inspection, Nontender, Normal color, Normal ROM , Normal temperature, Normal weight bearing. No: Jaden's sign - Neurological Neuro grossly intact: Yes Cognition: Normal [place] Coma Scale Eye Opening: Spontaneous [place] Coma Scale Verbal: Confused [place] Coma Scale Motor: Obeys Commands Asia Coma Scale Total: 14 Motor strength normal: LUE, RUE, LLE, RLE Sensory: Normal - Skin Skin Temperature: Warm Skin Moisture: Dry Skin Color: Pale Course - Re-evaluation Re-evalutation: 03/15/18 23:06 Patient noted to have evidence of urinary tract infection on urinalysis, however vital signs and remaining laboratory findings are unremarkable, therefore discharged with prescription for antibiotics and instructions for return, patient acknowledges understanding and agreement - Vital Signs Vital signs: Temp Pulse Resp BP Pulse Ox 97.9 F 79 19 132/67 H 98 03/15/18 22:48 03/15/18 22:48 03/15/18 22:48 03/15/18 22:48 03/15/18 22:48 - Laboratory Result Diagrams: 03/15/18 16:58 03/15/18 16:58 Laboratory results interpreted by me: 03/15/18 03/15/18 03/15/18 16:58 16:58 20:19 RDW 15.0 H Carbon Dioxide 31 H BUN 25 H ALT 17 L Creatine Kinase 29 L Albumin 3.1 L Urine Protein 30 H Urine Ketones 20 H Urine Blood SMALL H Urine Urobilinogen 4.0 H Ur Leukocyte Esterase MODERATE H - Diagnostic Test Radiology reviewed: Image reviewed, Reports reviewed Discharge - Discharge Clinical Impression: Urinary tract infection Condition: Stable [facility]position: [facility] Instructions: Cephalexin ([facility]), Urinary Tract Infection ([facility]) Additional Instructions: Follow up with your primary care provider in one to 2 days. Return to the emergency room immediately if symptoms worsen or any additional concerns. Prescriptions: Cephalexin Monohydrate [Keflex 500 mg Capsule] 500 mg PO BID #20 capsule
[2018-03-15 17:37] LABS: ABSOLUTE EOSINOPHILS # (AUTO) 0.4 10^3/uL (0.0-0.6); ABSOLUTE LYMPHOCYTES (AUTO) 2.7 10^3/uL (0.5-4.7); ABSOLUTE MONOCYTES (AUTO) 0.6 10^3/uL (0.1-1.4); ABSOLUTE NEUT (AUTO) 3.3 10^3/uL (1.7-8.2); BASOPHILS % (AUTO) 0.6 % (0-2); EOSINOPHILS % (AUTO) 5.1 % (0-6); HEMATOCRIT 42.2 % (37.9-51.0); HEMOGLOBIN 14.4 g/dL (13.5-17.0); LYMPHOCYTES % (AUTO) 38.5 % (13-45); MEAN CORPUSCULAR HEMOGLOBIN 31.5 pg (27.0-33.4); MEAN CORPUSCULAR HGB CONC 34.1 g/dL (32.0-36.0); MEAN CORPUSCULAR VOLUME 93 fl (80-97); MONOCYTES % (AUTO) 8.3 % (3-13); PLATELET COUNT 187 10^3/uL (150-450); RED BLOOD COUNT 4.56 10^6/uL (4.35-5.55); SEGMENTED NEUTROPHILS % (AUTO) 47.5 % (42-78); TOTAL CELLS COUNTED % (AUTO) 100 %; WHITE BLOOD COUNT 6.9 10^3/uL (4.0-10.5)
--- NOTE | 2018-03-15 17:53 | RADIOLOGY REPORT (SQ) ---
EXAM DESCRIPTION: CT HEAD WITHOUT COMPLETED DATE/TIME: 03/15/2018 5:44 pm REASON FOR STUDY: ams COMPARISON: None. TECHNIQUE: Axial images acquired through the brain without intravenous contrast. Images reviewed wi th bone, brain and subdural windows. Additional sagittal and coronal reconstructions were generated. Images stored on PACS. All CT scanners at this facility use dose modulation, iterative reconstruction, and/or weight based d osing when appropriate to reduce radiation dose to as low as reasonably achievable (ALARA). [facility]: Dose Right [facility]: CareDose [facility]: Dose Right [facility]: Teradose 4D [facility]: [employer] RADIATION DOSE: CT Rad equipment meets quality standard of care and radiation dose reduction techniq ues were employed. CTDIvol: 53.2 mGy. DLP: 991 mGy-cm.mGy. LIMITATIONS: None. FINDINGS: VENTRICLES: Prominent. CEREBRUM: No masses. No hemorrhage. No midline shift. Areas of low density in the white matter mos t likely due to chronic micro-vascular ischemic change. No evidence for acute infarction. CEREBELLUM: No masses. No hemorrhage. No alteration of density. No evidence for acute infarction. EXTRAAXIAL SPACES: Age-related involutional change. No fluid collections. No masses. ORBITS AND GLOBE: No intra- or extraconal masses. Normal contour of globe without masses. CALVARIUM: No fracture. PARANASAL SINUSES: No fluid or mucosal thickening. SOFT TISSUES: No mass or hematoma. OTHER: No other significant finding. IMPRESSION: CHRONIC CHANGES OF ATROPHY AND MICROVASCULAR ISCHEMIA. NO ACUTE PROCESS. EVIDENCE OF ACUTE STROKE: NO. TECHNICAL DOCUMENTATION: JOB ID: [id number] Quality ID # [id number]: Final reports with documentation of one or more dose reduction techniques (e.g., Au tomated exposure control, adjustment of the mA and/or kV according to patient size, use of iterative reconstruction technique) 2010 [employer]- All Rights Reserved Reading location - IP/workstation name: [email or web address]
--- NOTE | 2018-03-15 17:55 | RADIOLOGY REPORT (SQ) ---
EXAM DESCRIPTION: CHEST SINGLE VIEW COMPLETED DATE/TIME: 03/15/2018 5:47 pm REASON FOR STUDY: ams COMPARISON: 11/20/2017 NUMBER OF VIEWS: One view. TECHNIQUE: Single frontal radiographic view of the chest acquired. LIMITATIONS: None. FINDINGS: LUNGS AND PLEURA: Small left pleural effusion. No opacities. No pneumothorax. MEDIASTINUM AND HILAR STRUCTURES: No masses. Contour normal. HEART AND VASCULAR STRUCTURES: Heart enlarged without failure. Normal vasculature. BONES: No acute findings. HARDWARE: None in the chest. OTHER: No other significant finding. IMPRESSION: Heart enlarged. Small left effusion. TECHNICAL DOCUMENTATION: JOB ID: [id number] [employer]- All Rights Reserved Reading location - IP/workstation name: [email or web address]
[2018-03-15 18:02] LABS: ALANINE AMINOTRANSFERASE 17 U/L (21-72); ALBUMIN 3.1 g/dL (3.5-5.0); ALKALINE PHOSPHATASE 75 U/L (38-126); ANION GAP 6 (5-19); ASPARTATE AMINO TRANSFERASE 34 U/L (17-59); BILIRUBIN,DIRECT 0.3 mg/dL (0.0-0.4); BILIRUBIN,TOTAL 0.5 mg/dL (0.2-1.3); BLOOD UREA NITROGEN 25 mg/dL (7-20); CALCIUM 8.8 mg/dL (8.4-10.2); CARBON DIOXIDE 31 mmol/L (22-30); CHLORIDE 107 mmol/L (98-107); CREATINE KINASE 29 U/L (55-170); GLUCOSE 94 mg/dL (75-110); POTASSIUM 4.3 mmol/L (3.6-5.0); SODIUM 144.3 mmol/L (137-145); TOTAL PROTEIN 6.5 g/dL (6.3-8.2)
[2018-03-15 18:13] LABS: CREATINE KINASE MB 0.69 ng/mL (<4.55); TROPONIN I 0.012 ng/mL
--- NOTE | 2018-03-15 19:05 | EKG REPORT ---
SEVERITY:- ABNORMAL ECG - ATRIAL FIBRILLATION, V-RATE 41-67 VENTRICULAR PREMATURE COMPLEX ANTERIOR INFARCT, AGE INDETERMINATE : Confirmed by: Jose Gandhi MD 15-Mar-2018 19:04:40
[2018-03-15 20:43] LABS: APPEARANCE,URINE SLIGHTLY-CLOUDY; BILIRUBIN,URINE NEGATIVE (NEGATIVE); COLOR,URINE YELLOW; GLUCOSE, URINE NEGATIVE (NEGATIVE); KETONES,URINE 20 mg/dL (NEGATIVE); LEUKOCYTE ESTERASE,URINE MODERATE (NEGATIVE); NITRITE,URINE NEGATIVE (NEGATIVE); PROTEIN,URINE 30 mg/dL (NEGATIVE); URINE SPECIFIC GRAVITY 1.023
[2018-03-15] MEDS ORDERED: CEPHALEXIN 500 MG CAPSULE PO ONE (20:47)
[2018-03-15 22:49] VITALS: BP 132/67
== END 2018-03-15 22:49 ==
LOC: ER 16:20
DX: N39.0 Urinary tract infection, site not specified (principal); R53.1 Weakness; R63.0 Anorexia; I25.10 Atherosclerotic heart disease of native coronary artery without angina pectoris; I10 Essential (primary) hypertension; J44.9 Chronic obstructive pulmonary disease, unspecified; E11.9 Type 2 diabetes mellitus without complications
CPT/HCPCS: 93005; 99285; 96360; 36415; 82553; 82550; 85025; 80053; 81001; 84484; 71045; 70450; 93010; J7030

== ENCOUNTER 2018-03-31 13:28 | Emergency (ER) | payer OTHER, MEDICARE ==
--- NOTE | 2018-03-31 14:43 | ER Document Report ---
ED General - General Chief Complaint: Other Stated Complaint: MALAISE Time Seen by Provider: 03/31/18 14:42 TRAVEL OUTSIDE OF THE [place] IN LAST 30 DAYS: No - HPI Patient complains to provider of: Found on floor Notes: Patient coming in for evaluation after he was found on the floor his medical snf. Patient was found by staff apparently was able to get up however patient did leave himself back down on the floor. Patient otherwise also refused taking of his medications today. Patient does have a history of significant dementia. Patient upon my evaluation is sleeping easily arousable and able to express that he does want something to drink. Reviewed the patient' s medications are reviewed that the patient is on Depakote. Also patient recently was diagnosed with a urinary tract infection. Otherwise patient's vital signs are normal - Related Data Allergies/Adverse Reactions: codeine [Codeine] Allergy (Verified 01/17/18 18:07) NSAIDS (Non-Steroidal Anti-Inflamma Allergy (Verified 01/17/18 18:07) Penicillins Allergy (Verified 01/17/18 18:07) Past Medical History - Social History Smoking Status: Unknown if Ever Smoked Family History: Reviewed & Not Pertinent, Malignancy Patient has suicidal ideation: No Patient has homicidal ideation: No - Past Medical History Cardiac Medical History: Reports: Hx Atrial Fibrillation, Hx Congestive Heart Failure - Diastolic dysfunction, Hx Coronary Artery Disease, Hx DVT - Left lower extremity, Hx Heart Attack, Hx Hypercholesterolemia, Hx Hypertension Pulmonary Medical History: Reports: Hx COPD Endocrine Medical History: Reports: Hx Diabetes Mellitus Type 2 Renal/ Medical History: Denies: Hx Peritoneal Dialysis Psychiatric Medical History: Reports: Hx Dementia, Hx Depression Past Surgical History: Reports: Hx Cardiac Catheterization - 2009, Hx Cholecystectomy, Hx Coronary Stent - 2009 - Immunizations Immunizations up to date: Yes Hx Diphtheria, Pertussis, Tetanus Vaccination: Yes - unknown Hx Pneumococcal Vaccination: 04/17/14 Review of Systems - Review of Systems -: Yes ROS unobtainable due to patient's medical condition - Dementia Physical Exam - Vital signs Vitals: Temp Pulse Resp BP Pulse Ox 97.3 F 87 18 110/78 94 03/31/18 13:34 03/31/18 13:34 03/31/18 13:34 03/31/18 13:34 03/31/18 13:34 Interpretation: Normal - General General appearance: Appears well, Alert - HEENT Head: Normocephalic, Atraumatic Eyes: Normal Pupils: PERRL - Respiratory Respiratory status: No respiratory distress Chest status: Nontender Breath sounds: Normal Chest palpation: Normal - Cardiovascular Rhythm: Regular Heart sounds: Normal auscultation Murmur: No - Abdominal Inspection: Normal Distension: No distension Bowel sounds: Normal Tenderness: Nontender Organomegaly: No organomegaly - Back Back: Normal, Nontender - Extremities General upper extremity: Normal inspection, Nontender, Normal color, Normal ROM , Normal temperature General lower extremity: Normal inspection, Nontender, Normal color, Normal ROM - Neurological Neuro grossly intact: Yes [place] Coma Scale Eye Opening: Spontaneous [place] Coma Scale Verbal: Confused [place] Coma Scale Motor: Obeys Commands [place] Coma Scale Total: 14 Sensory: Normal - Psychological Associated symptoms: Other - History of dementia - Skin Skin Temperature: Warm Skin Moisture: Dry Skin Color: Normal Course - Re-evaluation Re-evalutation: 03/31/18 19:14 Laboratory studies not show any acute findings. Patient's head CT showed no acute traumatic findings possibility of a venous malformation did discuss with Dr. Ly had a fall and states possibly this was seen on other CT scans as well however he does agree that there is no acute traumatic findings at this time. Patient otherwise has been able to tolerate p.o. here is moving all 4 extremities will discharge patient back to intermediate - Vital Signs Vital signs: Temp Pulse Resp BP Pulse Ox 97.3 F 87 18 110/78 94 03/31/18 13:34 03/31/18 13:34 03/31/18 13:34 03/31/18 13:34 03/31/18 13:34 - Laboratory Result Diagrams: 03/31/18 15:39 03/31/18 15:39 Laboratory results interpreted by me: 03/31/18 15:39 BUN 23 H ALT 13 L Total Protein 6.2 L Albumin 3.2 L Discharge - Discharge Clinical Impression: No problem, feared complaint unfounded Dementia Qualifiers: Dementia type: unspecified type Dementia behavioral disturbance: without behavioral disturbance Qualified Code(s): F03.90 - Unspecified dementia without behavioral disturbance Additional Instructions: Patient coming in for evaluation after being found on the floor. Patient's laboratory studies showed no signs of infection no urinary tract infection. Head CT does not show any acute traumatic findings. I recommend patient continue all of his home prescribed meds follow-up with his primary care physician as needed.
[2018-03-31 16:01] LABS: ABSOLUTE EOSINOPHILS # (AUTO) 0.1 10^3/uL (0.0-0.6); TOTAL CELLS COUNTED % (AUTO) 100 %
[2018-03-31 16:18] LABS: ALANINE AMINOTRANSFERASE 13 U/L (21-72); ALBUMIN 3.2 g/dL (3.5-5.0); ALKALINE PHOSPHATASE 87 U/L (38-126); ANION GAP 8 (5-19); ASPARTATE AMINO TRANSFERASE 17 U/L (17-59); BILIRUBIN,DIRECT 0.2 mg/dL (0.0-0.4); BILIRUBIN,TOTAL 0.3 mg/dL (0.2-1.3); BLOOD UREA NITROGEN 23 mg/dL (7-20); CALCIUM 8.6 mg/dL (8.4-10.2); CARBON DIOXIDE 27 mmol/L (22-30); CHLORIDE 104 mmol/L (98-107); CREATINE KINASE 60 U/L (55-170); GLUCOSE 108 mg/dL (75-110); LIPASE 39.1 U/L (23-300); POTASSIUM 4.3 mmol/L (3.6-5.0); TOTAL PROTEIN 6.2 g/dL (6.3-8.2)
[2018-03-31 16:21] LABS: APPEARANCE,URINE SLIGHTLY-CLOUDY; BILIRUBIN,URINE NEGATIVE (NEGATIVE); COLOR,URINE YELLOW; GLUCOSE, URINE NEGATIVE (NEGATIVE); KETONES,URINE NEGATIVE (NEGATIVE); LEUKOCYTE ESTERASE,URINE NEGATIVE (NEGATIVE); NITRITE,URINE NEGATIVE (NEGATIVE); PROTEIN,URINE NEGATIVE (NEGATIVE); URINE SPECIFIC GRAVITY 1.017; UROBILINOGEN,URINE NEGATIVE mg/dL (<2.0)
[2018-03-31 16:24] LABS: ABSOLUTE LYMPHOCYTES (AUTO) 2.2 10^3/uL (0.5-4.7); ABSOLUTE MONOCYTES (AUTO) 0.5 10^3/uL (0.1-1.4); ABSOLUTE NEUT (AUTO) 5.2 10^3/uL (1.7-8.2); BASOPHILS % (AUTO) 0.5 % (0-2); EOSINOPHILS % (AUTO) 1.8 % (0-6); HEMATOCRIT 43.5 % (37.9-51.0); HEMOGLOBIN 14.9 g/dL (13.5-17.0); MEAN CORPUSCULAR HEMOGLOBIN 31.6 pg (27.0-33.4); MEAN CORPUSCULAR HGB CONC 34.2 g/dL (32.0-36.0); MEAN CORPUSCULAR VOLUME 92 fl (80-97); MONOCYTES % (AUTO) 6.1 % (3-13); PLATELET COUNT 179 10^3/uL (150-450); RED BLOOD COUNT 4.72 10^6/uL (4.35-5.55); SEGMENTED NEUTROPHILS % (AUTO) 64.6 % (42-78)
--- NOTE | 2018-03-31 17:52 | RADIOLOGY REPORT (SQ) ---
EXAM DESCRIPTION: CT HEAD WITHOUT COMPLETED DATE/TIME: 03/31/2018 5:26 pm REASON FOR STUDY: weakness COMPARISON: CT head 03/15/2018, 01/16/2016. MRI head 03/25/2009. TECHNIQUE: Axial images acquired through the brain without intravenous contrast. Images reviewed wi th bone, brain and subdural windows. Images stored on PACS. All CT scanners at this facility use dose modulation, iterative reconstruction, and/or weight based d osing when appropriate to reduce radiation dose to as low as reasonably achievable (ALARA). [facility]: Dose Right [facility]: CareDose [facility]: Dose Right [facility]: Teradose 4D [facility]: [employer] RADIATION DOSE: CT Rad equipment meets quality standard of care and radiation dose reduction techniq ues were employed. CTDIvol: 55.2 mGy. DLP: 1029 mGy-cm.mGy. LIMITATIONS: None. FINDINGS: VENTRICLES: Prominent. CEREBRUM: There is a small hyperdense area at the posterior right parietal lobe measuring 6 x 4 x 6 m m (AP by transverse by craniocaudal diameter), may represent a small vascular malformation. Otherwis e, no evidence for acute intracranial hemorrhage. No mass effect. No midline shift. Areas of low d ensity in the white matter most likely due to chronic micro-vascular ischemic change. No evidence fo r acute territorial infarction. CEREBELLUM: No hemorrhage. No alteration of density. No evidence for acute infarction. EXTRAAXIAL SPACES: Age-related involutional change. No fluid collections. ORBITS AND GLOBE: Symmetrical contour of the globes. CALVARIUM: No depressed fracture. PARANASAL SINUSES: No air-fluid level. SOFT TISSUES: No hematoma. IMPRESSION: 1. 6 mm hyperdense area at the posterior right parietal lobe, may represent a small vas cular malformation. Contrast-enhanced MRI can help in further evaluation. 2. No acute territorial infarct. Diffuse parenchymal volume loss. Chronic microvascular ischemic c hanges. EVIDENCE OF ACUTE STROKE: NO. COMMUNICATION The information above was relayed directly by me by telephone to DR. KOWALSKI On 018 at 17:43 hours with readback verification. TECHNICAL DOCUMENTATION: JOB ID: [id number] Quality ID # [id number]: Final reports with documentation of one or more dose reduction techniques (e.g., Au tomated exposure control, adjustment of the mA and/or kV according to patient size, use of iterative reconstruction technique) 2010 [facility] [employer]- All Rights Reserved Reading location - IP/workstation name: [email or web address]
[2018-03-31 21:33] VITALS: BP 100/67
== END 2018-03-31 21:34 | disposition home health service (06) ==
LOC: ER 13:28
DX: F03.90 Unspecified dementia, unspecified severity, without behavioral disturbance, psychotic disturbance, mood disturbance, and anxiety (principal); R53.81 Other malaise; Z79.899 Other long term (current) drug therapy; I50.9 Heart failure, unspecified; I11.0 Hypertensive heart disease with heart failure; I25.10 Atherosclerotic heart disease of native coronary artery without angina pectoris; J44.9 Chronic obstructive pulmonary disease, unspecified; E11.9 Type 2 diabetes mellitus without complications
CPT/HCPCS: 36415; 51701; 70450; 80053; 80164; 81001; 82550; 83690; 85025; 99285

== ENCOUNTER 2018-04-16 12:04 | Emergency (ER) | payer OTHER, MEDICARE ==
[2018-04-16] MEDS ORDERED: NORMAL SALINE 500 ML IV ONE (12:29)
[2018-04-16] MEDS ORDERED: DIVALPROEX SODIUM 500 MG TAB.SR.24H PO ONE (12:41)
[2018-04-16] MEDS ORDERED: BUSPIRONE HCL 10 MG TABLET PO ONE (12:41)
[2018-04-16 12:42] VITALS: BP 131/93
[2018-04-16 12:53] LABS: ABSOLUTE LYMPHOCYTES (AUTO) 2.7 10^3/uL (0.5-4.7); ABSOLUTE MONOCYTES (AUTO) 0.8 10^3/uL (0.1-1.4); ABSOLUTE NEUT (AUTO) 9.9 10^3/uL (1.7-8.2); BASOPHILS % (AUTO) 0.2 % (0-2); EOSINOPHILS % (AUTO) 0.2 % (0-6); HEMATOCRIT 47.4 % (37.9-51.0); HEMOGLOBIN 15.9 g/dL (13.5-17.0); LYMPHOCYTES % (AUTO) 19.9 % (13-45); MEAN CORPUSCULAR HEMOGLOBIN 31.2 pg (27.0-33.4); MEAN CORPUSCULAR HGB CONC 33.6 g/dL (32.0-36.0); MEAN CORPUSCULAR VOLUME 93 fl (80-97); PLATELET COUNT 187 10^3/uL (150-450); RED BLOOD COUNT 5.11 10^6/uL (4.35-5.55); RED CELL DISTRIBUTION WIDTH 14.3 % (11.5-14.0); SEGMENTED NEUTROPHILS % (AUTO) 73.7 % (42-78); TOTAL CELLS COUNTED % (AUTO) 100 %; WHITE BLOOD COUNT 13.4 10^3/uL (4.0-10.5)
[2018-04-16 12:54] LABS: VENOUS BLOOD BASE EXCESS 3.4 mmol/L; VENOUS BLOOD HCO3 28.9 mmol/L (20-32); VENOUS BLOOD PCO2 46.3 mmHg (35-63); VENOUS BLOOD PH 7.41 (7.30-7.42)
--- NOTE | 2018-04-16 13:07 | RADIOLOGY REPORT (SQ) ---
EXAM DESCRIPTION: CT HEAD WITHOUT COMPLETED DATE/TIME: 04/16/2018 12:51 pm REASON FOR STUDY: ams COMPARISON: 03/31/2018 TECHNIQUE: Axial images acquired through the brain without intravenous contrast. Images reviewed wi th bone, brain and subdural windows. Additional sagittal and coronal reconstructions were generated. Images stored on PACS. All CT scanners at this facility use dose modulation, iterative reconstruction, and/or weight based d osing when appropriate to reduce radiation dose to as low as reasonably achievable (ALARA). [facility]: Dose Right [facility]: CareDose [facility]: Dose Right [facility]: Teradose 4D [facility]: [employer] RADIATION DOSE: CT Rad equipment meets quality standard of care and radiation dose reduction techniq ues were employed. CTDIvol: 53.2 mGy. DLP: 1097 mGy-cm. mGy. LIMITATIONS: None. FINDINGS: VENTRICLES: Prominent ventricles secondary to involutional atrophy. CEREBRUM: A small hyperdense lesion is once again seen in the posterior parietal lobe on the right. No interval change. No hemorrhage. No acute infarction. Few scattered areas of low density in the white matter most likely chronic small vessel ischemic changes. CEREBELLUM: No masses. No hemorrhage. No alteration of density. No evidence for acute infarction. EXTRAAXIAL SPACES: No fluid collections. No masses. ORBITS AND GLOBE: No intra- or extraconal masses. Normal contour of globe without masses. CALVARIUM: No fracture. PARANASAL SINUSES: No fluid or mucosal thickening. SOFT TISSUES: No mass or hematoma. OTHER: No other significant finding. IMPRESSION: Stable head CT. Microvascular ischemia with no acute intracranial imaging findings. Sm all hyperdense lesion in the right posterior parietal lobe is unchanged. EVIDENCE OF ACUTE STROKE: NO. COMMENT: Quality ID # [id number]: Final reports with documentation of one or more dose reduction techniques (e.g., Automated exposure control, adjustment of the mA and/or kV according to patient size, use of iterative reconstruction technique) TECHNICAL DOCUMENTATION: JOB ID: [id number]- All Rights Reserved Reading location - IP/workstation name: [email or web address]
[2018-04-16 13:09] LABS: INTERNATIONAL RATION (INR) 1.21; PROTHROMBIN TIME 15.9 SEC (11.4-15.4)
[2018-04-16 13:14] LABS: ALANINE AMINOTRANSFERASE 14 U/L (21-72); ALBUMIN 3.3 g/dL (3.5-5.0); ALKALINE PHOSPHATASE 138 U/L (38-126); ANION GAP 9 (5-19); ASPARTATE AMINO TRANSFERASE 25 U/L (17-59); BILIRUBIN,DIRECT 0.4 mg/dL (0.0-0.4); BILIRUBIN,TOTAL 0.8 mg/dL (0.2-1.3); BLOOD UREA NITROGEN 34 mg/dL (7-20); CALCIUM 9.1 mg/dL (8.4-10.2); CARBON DIOXIDE 28 mmol/L (22-30); CHLORIDE 106 mmol/L (98-107); GLUCOSE 110 mg/dL (75-110); POTASSIUM 4.4 mmol/L (3.6-5.0); SODIUM 142.9 mmol/L (137-145); TOTAL PROTEIN 6.7 g/dL (6.3-8.2)
--- NOTE | 2018-04-16 13:23 | RADIOLOGY REPORT (SQ) ---
EXAM DESCRIPTION: CHEST SINGLE VIEW COMPLETED DATE/TIME: 04/16/2018 1:05 pm REASON FOR STUDY: ams COMPARISON: 03/15/2018 EXAM PARAMETERS: NUMBER OF VIEWS: One view. TECHNIQUE: Single frontal radiographic view of the chest acquired. RADIATION DOSE: NA LIMITATIONS: None. FINDINGS: LUNGS AND PLEURA: No opacities, masses or pneumothorax. No pleural effusion. MEDIASTINUM AND HILAR STRUCTURES: No masses. Contour normal. HEART AND VASCULAR STRUCTURES: Heart normal in size. Normal vasculature. BONES: No acute findings. HARDWARE: None in the chest. OTHER: No other significant finding. IMPRESSION: NO ACUTE RADIOGRAPHIC FINDING IN THE CHEST. TECHNICAL DOCUMENTATION: JOB ID: [id number] [employer]- All Rights Reserved Reading location - IP/workstation name: [email or web address]
[2018-04-16] MEDS ORDERED: RISPERIDONE 0.5 MG TAB.RAPDIS PO ONE (13:58)
--- NOTE | 2018-04-16 14:17 | RADIOLOGY REPORT (SQ) ---
EXAM DESCRIPTION: SHOULDER LEFT 2 OR MORE VIEWS COMPLETED DATE/TIME: 04/16/2018 2:07 pm REASON FOR STUDY: ams COMPARISON: None. NUMBER OF VIEWS: Three views. TECHNIQUE: Internal rotation, external rotation, and Y view images acquired of the left shoulder. LIMITATIONS: None. FINDINGS: MINERALIZATION: Normal. BONES: No acute fracture or dislocation. No worrisome bone lesions. JOINTS: No dislocation. Severe left acromioclavicular arthrosis. VISUALIZED LUNGS AND RIBS: No pneumothorax. No rib fracture. SOFT TISSUES: No radiopaque foreign body. OTHER: No other significant finding. IMPRESSION: No fracture or dislocation of the left shoulder. Severe left acromioclavicular arthrosi s. TECHNICAL DOCUMENTATION: JOB ID: [id number] [employer]- All Rights Reserved Reading location - IP/workstation name: [email or web address]
--- NOTE | 2018-04-16 14:19 | RADIOLOGY REPORT (SQ) ---
EXAM DESCRIPTION: PELVIS AP COMPLETED DATE/TIME: 04/16/2018 2:07 pm REASON FOR STUDY: ams COMPARISON: 01/16/2016 NUMBER OF VIEWS: One view TECHNIQUE: AP Pelvis LIMITATIONS: None. FINDINGS: MINERALIZATION: Osteopenia. HIPS: No acute fracture or dislocation. No worrisome bone lesions. PELVIS AND SACRUM: No acute fracture or dislocation. No worrisome bone lesions. PUBIS AND ISCHIUM: No acute fracture. LOWER LUMBAR SPINE: No significant findings as visualized. SOFT TISSUES: No findings. OTHER: No other significant finding. IMPRESSION: Osteopenia without displaced fracture or dislocation of the pelvis or proximal femurs in AP projection. Plain radiographs may be insensitive for hip or pelvic fracture in the setting of os teopenia. Consider CT or MRI to further evaluate if there is high clinical suspicion for fracture ba sed on mechanism and clinical signs/symptoms. TECHNICAL DOCUMENTATION: JOB ID: [id number] [employer]- All Rights Reserved Reading location - IP/workstation name: [email or web address]
[2018-04-16] MEDS ORDERED: NORMAL SALINE 1000 ML 1,000 ML IV ONE ×2 (14:47→16:18)
--- NOTE | 2018-04-16 15:45 | ER Document Report ---
ED General - General TRAVEL OUTSIDE OF THE [place].S. IN LAST 30 DAYS: No - HPI Patient complains to provider of: Altered mental status <ANDRAE WOOD - Last Filed: 04/16/18 15:45> <DWAYNE HOLLINGSWORTH - Last Filed: 04/16/18 17:15> - General Chief Complaint: Altered Mental Status Stated Complaint: ALTERED MENTAL STATUS Time Seen by Provider: 04/16/18 12:29 - HPI Notes: Patient coming in from local nursing care facility because of altered mental state. Patient has a history of dementia and schizophrenia. Patient upon my evaluation minimally verbal however states and is moaning however is unable to localize any area of pain. Most of the HPI is obtained from the detention records. Does not like patient has not been taking most of his medications patient is on Eliquis for atrial fibrillation. Otherwise patient vital signs of the meter stable at this time. A brief review of the patient's past medical records available in [facility] was performed (ANDRAE WOOD) - Related Data Allergies/Adverse Reactions: codeine [Codeine] Allergy (Verified 01/17/18 18:07) NSAIDS (Non-Steroidal Anti-Inflamma Allergy (Verified 01/17/18 18:07) Penicillins Allergy (Verified 01/17/18 18:07) Past Medical History - Social History Smoking Status: Unknown if Ever Smoked Chew tobacco use (# tins/day): No Frequency of alcohol use: None Drug Abuse: None Family History: Reviewed & Not Pertinent, Malignancy Patient has suicidal ideation: No Patient has homicidal ideation: No - Past Medical History Cardiac Medical History: Reports: Hx Atrial Fibrillation, Hx Congestive Heart Failure - Diastolic dysfunction, Hx Coronary Artery Disease, Hx DVT - Left lower extremity, Hx Heart Attack, Hx Hypercholesterolemia, Hx Hypertension Pulmonary Medical History: Reports: Hx COPD Endocrine Medical History: Reports: Hx Diabetes Mellitus Type 2 Renal/ Medical History: Denies: Hx Peritoneal Dialysis Psychiatric Medical History: Reports: Hx Dementia, Hx Depression Past Surgical History: Reports: Hx Cardiac Catheterization - 2009, Hx Cholecystectomy, Hx Coronary Stent - 2009 - Immunizations Immunizations up to date: Yes Hx Diphtheria, Pertussis, Tetanus Vaccination: Yes - unknown Hx Pneumococcal Vaccination: 04/17/14 <ANDRAE WOOD - Last Filed: 04/16/18 15:45> Review of Systems <ANDRAE WOOD - Last Filed: 12/31/18 15:45> - Review of Systems Notes: Altered mental state (ANDRAE WOOD) Physical Exam - Vital signs Interpretation: Normal - General General appearance: Appears well, Alert - HEENT Head: Normocephalic, Atraumatic Eyes: Normal Pupils: PERRL - Respiratory Respiratory status: No respiratory distress Chest status: Nontender Breath sounds: Normal Chest palpation: Normal - Cardiovascular Rhythm: Regular Heart sounds: Normal auscultation Murmur: No - Abdominal Inspection: Normal Distension: No distension Bowel sounds: Normal Tenderness: Nontender Organomegaly: No organomegaly - Back Back: Normal, Nontender - Extremities General upper extremity: Normal inspection, Nontender, Normal color, Normal ROM, Normal temperature General lower extremity: Normal inspection, Nontender, Normal color, Normal ROM, Normal temperature, Normal weight bearing. No: Jaden's sign - Neurological Neuro grossly intact: Yes Cognition: Confused [place] Coma Scale Eye Opening: Spontaneous [place] Coma Scale Verbal: Confused [place] Coma Scale Motor: Obeys Commands [place] Coma Scale Total: 14 - Psychological Associated symptoms: Agitated - Skin Skin Temperature: Warm Skin Moisture: Dry Skin Color: Normal <ANDRAE WOOD - Last Filed: 04/16/18 15:45> - Vital signs Vitals: Temp Pulse Resp BP Pulse Ox 98.8 F 85 26 H 131/93 H 95 04/16/18 12:14 04/16/18 12:14 04/16/18 12:14 04/16/18 12:14 04/16/18 12:14 Course - Laboratory Result Diagrams: 04/16/18 12:31 04/16/18 12:31 <ANDRAE WOOD - Last Filed: 04/16/18 15:45> - Laboratory Result Diagrams: 04/16/18 12:31 04/16/18 12:31 <DWAYNE HOLLINGSWORTH - Last Filed: 04/16/18 17:15> - Re-evaluation Re-evalutation: 04/16/18 15:45 Examination patient does not reveal any critical pathology. Laboratory studies also not revealing etiology for his underlying altered mental state currently a urine sample is pending. Patient was given his home medications and since that time is been quite calm here in the ER and has been monitored. Of note the SPO2 reading of 77 is a documentation error by the nursing staff. Patient has remained at 92 and above on his SPO2. I believe his altered mental status due to medication noncompliance (ANDRAE WOOD) - Vital Signs Vital signs: Temp Pulse Resp BP Pulse Ox 98.8 F 85 26 H 131/93 H 95 04/16/18 12:14 04/16/18 12:14 04/16/18 12:14 04/16/18 12:14 04/16/18 12:14 - Laboratory Laboratory results interpreted by me: 04/16/18 04/16/18 04/16/18 12:29 12:31 12:31 WBC 13.4 H RDW 14.3 H Absolute Neutrophils 9.9 H PT 15.9 H BUN ALT Alkaline Phosphatase Ammonia Creatine Kinase 20 L Albumin Urine Protein Urine Ketones Urine Blood Urine Urobilinogen Ur Leukocyte Esterase 04/16/18 04/16/18 04/16/18 12:31 12:51 16:15 WBC RDW Absolute Neutrophils PT BUN 34 H ALT 14 L Alkaline Phosphatase 138 H Ammonia < 8.7 L Creatine Kinase Albumin 3.3 L Urine Protein 30 H Urine Ketones 20 H Urine Blood MODERATE H Urine Urobilinogen 4.0 H Ur Leukocyte Esterase SMALL H Discharge <ANDRAE WOOD - Last Filed: 04/16/18 15:45> <DWAYNE HOLLINGSWORTH - Last Filed: 04/16/18 17:15> - Discharge Clinical Impression: Medication noncompliance Atrial fibrillation Qualifiers: Atrial fibrillation type: unspecified Qualified Code(s): I48.91 - Unspecified atrial fibrillation Dementia Qualifiers: Dementia type: unspecified type Dementia behavioral disturbance: without behavioral disturbance Qualified Code(s): F03.90 - Unspecified dementia without behavioral disturbance UTI (urinary tract infection) Qualifiers: Urinary tract infection type: site unspecified Hematuria presence: with hematuria Qualified Code(s): N39.0 - Urinary tract infection, site not specified; R31.9 - Hematuria, unspecified Condition: Good Disposition: SNF-Other Instructions: Urinary Tract Infection ([facility]) Additional Instructions: Laboratory studies CT of the head and x-rays of the chest shoulder and pelvis not reveal any acute pathology at this time. There are no signs of infection. Patient was given his home medications and has remained quite calm here in the ER. I do believe his altered mental state possible aggression is due to underlying noncompliance with medication regimen. Would recommend to continue to give the patient all of his prescribed medications as directed by his physician. Recommend patient follow-up with a physician 24-48 hours Prescriptions: Nitrofurantoin/Nitrofuran Mac [Macrobid 100 mg Capsule] 1 tab PO BID #20 capsule
[2018-04-16] MEDS ORDERED: LIDOCAINE 2% URO-JET 5 ML KIT MM ONE (16:11)
--- NOTE | 2018-04-16 16:29 | EKG REPORT ---
SEVERITY:- ABNORMAL ECG - ATRIAL FIBRILLATION, V-RATE 79-140 LEFT ANTERIOR FASCICULAR BLOCK NONSPECIFIC REPOL ABNORMALITY, DIFFUSE LEADS : Confirmed by: Marielle Parikh MD 16-Apr-2018 16:29:01
[2018-04-16 16:47] LABS: APPEARANCE,URINE SLIGHTLY-CLOUDY; BILIRUBIN,URINE NEGATIVE (NEGATIVE); COLOR,URINE AMBER; GLUCOSE, URINE NEGATIVE (NEGATIVE); KETONES,URINE 20 mg/dL (NEGATIVE); LEUKOCYTE ESTERASE,URINE SMALL (NEGATIVE); NITRITE,URINE NEGATIVE (NEGATIVE); PROTEIN,URINE 30 mg/dL (NEGATIVE); URINE SPECIFIC GRAVITY 1.028
[2018-04-16] MEDS ORDERED: NITROFURANTOIN MONOHYD/M-CRYST 100 MG CAPSULE PO ONE (17:15)
== END 2018-04-16 18:06 ==
LOC: ER 12:04
DX: F03.90 Unspecified dementia, unspecified severity, without behavioral disturbance, psychotic disturbance, mood disturbance, and anxiety (principal); Z91.14 Patient's other noncompliance with medication regimen; N39.0 Urinary tract infection, site not specified; R31.9 Hematuria, unspecified; I48.91 Unspecified atrial fibrillation; Z79.01 Long term (current) use of anticoagulants; I10 Essential (primary) hypertension; J44.9 Chronic obstructive pulmonary disease, unspecified; E11.9 Type 2 diabetes mellitus without complications; Z95.5 Presence of coronary angioplasty implant and graft; Z88.5 Allergy status to narcotic agent; Z88.0 Allergy status to penicillin; Z88.8 Allergy status to other drugs, medicaments and biological substances; I25.10 Atherosclerotic heart disease of native coronary artery without angina pectoris
CPT/HCPCS: 93005; 99284; 96360; 96361; 51701; 36415; 87040; 87086; 82962; 82140; 82550; 85025; 85610; 87077; 80053; 81001; 84484; 80164; 82803; 83605; 71045; 72170; 73030; 70450; 93010; C1758 ×2; J7030; J7040; J3490; J8499; 87186

== ENCOUNTER 2018-04-23 09:53 | Inpatient (IN) | payer OTHER, MEDICARE ==
[2018-04-23 10:29] LABS: ABSOLUTE LYMPHOCYTES (AUTO) 2.7 10^3/uL (0.5-4.7); ABSOLUTE MONOCYTES (AUTO) 0.8 10^3/uL (0.1-1.4); ABSOLUTE NEUT (AUTO) 5.4 10^3/uL (1.7-8.2); BASOPHILS % (AUTO) 0.4 % (0-2); EOSINOPHILS % (AUTO) 0.6 % (0-6); HEMATOCRIT 53.2 % (37.9-51.0); HEMOGLOBIN 18.1 g/dL (13.5-17.0); LYMPHOCYTES % (AUTO) 29.8 % (13-45); MEAN CORPUSCULAR HEMOGLOBIN 31.4 pg (27.0-33.4); MEAN CORPUSCULAR VOLUME 92 fl (80-97); MONOCYTES % (AUTO) 8.5 % (3-13); PLATELET COUNT 182 10^3/uL (150-450); RED BLOOD COUNT 5.76 10^6/uL (4.35-5.55); RED CELL DISTRIBUTION WIDTH 14.3 % (11.5-14.0); SEGMENTED NEUTROPHILS % (AUTO) 60.7 % (42-78); TOTAL CELLS COUNTED % (AUTO) 100 %; WHITE BLOOD COUNT 8.9 10^3/uL (4.0-10.5)
[2018-04-23] MEDS ORDERED: NORMAL SALINE 1000 ML 1,000 ML IV ONE ×2 (10:30→15:27)
[2018-04-23 10:36] LABS: ALANINE AMINOTRANSFERASE < 6 U/L (21-72); ALBUMIN 3.8 g/dL (3.5-5.0); ALKALINE PHOSPHATASE 149 U/L (38-126); ANION GAP 8 (5-19); ASPARTATE AMINO TRANSFERASE 35 U/L (17-59); BILIRUBIN,DIRECT 0.6 mg/dL (0.0-0.4); BILIRUBIN,TOTAL 0.9 mg/dL (0.2-1.3); BLOOD UREA NITROGEN 53 mg/dL (7-20); CALCIUM 9.8 mg/dL (8.4-10.2); CARBON DIOXIDE 30 mmol/L (22-30); CHLORIDE 108 mmol/L (98-107); CREATINE KINASE 28 U/L (55-170); GLUCOSE 118 mg/dL (75-110); POTASSIUM 4.9 mmol/L (3.6-5.0); SODIUM 146.2 mmol/L (137-145)
[2018-04-23 10:44] LABS: CREATINE KINASE MB 0.44 ng/mL (<4.55)
[2018-04-23 10:50] LABS: TROPONIN I < 0.012 ng/mL
--- NOTE | 2018-04-23 11:16 | RADIOLOGY REPORT (SQ) ---
EXAM DESCRIPTION: CHEST SINGLE VIEW COMPLETED DATE/TIME: 04/23/2018 10:59 am REASON FOR STUDY: fatigue. aspiration COMPARISON: 04/16/2018 EXAM PARAMETERS: NUMBER OF VIEWS: One view. TECHNIQUE: Single frontal radiographic view of the chest acquired. RADIATION DOSE: NA LIMITATIONS: None. FINDINGS: LUNGS AND PLEURA: No opacities, masses or pneumothorax. No pleural effusion. MEDIASTINUM AND HILAR STRUCTURES: No masses. Contour normal. HEART AND VASCULAR STRUCTURES: Cardiomegaly. BONES: No acute findings. HARDWARE: None in the chest. OTHER: No other significant finding. IMPRESSION: Cardiomegaly without acute abnormality of the lungs in AP projection. TECHNICAL DOCUMENTATION: JOB ID: [id number] [employer]- All Rights Reserved Reading location - IP/workstation name: [email or web address]
--- NOTE | 2018-04-23 11:17 | RADIOLOGY REPORT (SQ) ---
EXAM DESCRIPTION: KUB/ABDOMEN (SINGLE VIEW) COMPLETED DATE/TIME: 04/23/2018 10:59 am REASON FOR STUDY: abdominal pain COMPARISON: None. NUMBER OF VIEWS: One view. TECHNIQUE: Supine radiographic image of the abdomen acquired. LIMITATIONS: None. FINDINGS: BOWEL GAS PATTERN: Normal bowel gas pattern. No dilated loops. CALCIFICATIONS: No suspicious calcifications. SOFT TISSUES: No gross mass or suggestion of organomegaly. HARDWARE: None in the abdomen. BONES: No acute fracture. No worrisome bone lesions. OTHER: No other significant finding. IMPRESSION: Nonobstructive pattern of bowel gas with scattered gas and stool present to the rectum. No free air in the abdomen on spine radiographs. TECHNICAL DOCUMENTATION: JOB ID: [id number]- All Rights Reserved Reading location - IP/workstation name: [email or web address]
[2018-04-23] MEDS ORDERED: HALOPERIDOL LACTATE INJ 5 MG/1 ML VIAL IV ONE (11:36)
--- NOTE | 2018-04-23 11:38 | ER Document Report ---
ED General - General Chief Complaint: Other Stated Complaint: WEAKNESS Time Seen by Provider: 04/23/18 10:22 Mode of Arrival: Medic Information source: Parent, Relative Cannot obtain history due to: Dementia TRAVEL OUTSIDE OF THE [place] IN LAST 30 DAYS: No - HPI Onset: Other - This 87-year-old man presents for evaluation of failure to thrive. He was previously evaluated and discharged approximately 6 times through the month of March leading up until today and most recently was diagnosed with a urinary tract infection for which she was started on antibiotic and discharged to his assisted living facility. He has not been eating or drinking since that time. They were concerned at his facility and sent him for further evaluation rest of history is limited secondary to this patient's mental status. - Related Data Allergies/Adverse Reactions: codeine [Codeine] Allergy (Verified 04/23/18 11:43) NSAIDS (Non-Steroidal Anti-Inflamma Allergy (Verified 04/23/18 11:43) Penicillins Allergy (Verified 04/23/18 11:43) Past Medical History - General Information source: Parent, Relative Cannot obtain history due to: Dementia - Social History Smoking Status: Unknown if Ever Smoked Family History: Reviewed & Not Pertinent, Malignancy - Past Medical History Cardiac Medical History: Reports: Hx Atrial Fibrillation, Hx Congestive Heart Failure - Diastolic dysfunction, Hx Coronary Artery Disease, Hx DVT - Left lower extremity, Hx Heart Attack, Hx Hypercholesterolemia, Hx Hypertension Pulmonary Medical History: Reports: Hx COPD Endocrine Medical History: Reports: Hx Diabetes Mellitus Type 2 Renal/ Medical History: Denies: Hx Peritoneal Dialysis Psychiatric Medical History: Reports: Hx Dementia, Hx Depression Past Surgical History: Reports: Hx Cardiac Catheterization - 2009, Hx Cholecystectomy, Hx Coronary Stent - 2009 - Immunizations Immunizations up to date: Yes Hx Diphtheria, Pertussis, Tetanus Vaccination: Yes - unknown Hx Pneumococcal Vaccination: 04/17/14 Review of Systems - Review of Systems -: Yes ROS unobtainable due to patient's medical condition Physical Exam - Vital signs Vitals: Resp 04/23/18 10:00 - General General appearance: Lethargic, Unresponsive In distress: Mild - HEENT Head: Other - Dry lips, dry tongue, Eyes: Normal Conjunctiva: Injected - Respiratory Respiratory status: Agonal respirations Chest status: Nontender Breath sounds: Rhonchi Chest palpation: Normal - Cardiovascular Rhythm: Tachycardia Heart sounds: Normal auscultation - Abdominal Inspection: Normal Distension: Other - Rounded diffusely tender Bowel sounds: Hypoactive Tenderness: Tender Organomegaly: No organomegaly - Back Back: Normal - Extremities General upper extremity: Other - contracted limbs General lower extremity: Normal inspection, Nontender - Neurological Cognition: Confused, Inattentive Orientation: Disoriented to person, Disoriented to place, Disoriented to time [place] Coma Scale Eye Opening: Spontaneous [place] Coma Scale Verbal: Inappropriate [place] Coma Scale Motor: Localizes to Pain [place] Coma Scale Total: 12 Speech: Dysarthria Motor strength normal: LUE, RUE, LLE, RLE Sensory: Normal - Psychological Associated symptoms: Anxious, Confused Course - Re-evaluation Re-evalutation: 04/23/18 19:54 87-year-old male who presents for confusion and failure to thrive and weakness. He is obviously dehydrated on examination. Has profound tenderness throughout the abdomen. Called patient's [id number] who is his primary caregiver this gentleman is a DNR/DNI and would consider end-of-life care if able. We will obtain CT of the abdomen and pelvis as he does have abdominal tenderness and is unable to communicate appropriately. This gentleman definitely should not be living in assisted living facility is beyond the scope for his level of care. Have contacted the on-call hospitalist for this patient's dehydration, failure to thrive, inability to tolerate p.o., and worsening cognitive function. He will be admitted to the hospital for ongoing management administration of fluids and reassessment. - Vital Signs Vital signs: Temp Pulse Resp BP Pulse Ox 97.6 F 15 129/106 H 97 04/23/18 16:23 04/23/18 18:26 04/23/18 18:26 04/23/18 18:26 - Laboratory Result Diagrams: 04/23/18 10:00 04/23/18 10:00 Laboratory results interpreted by me: 04/23/18 04/23/18 04/23/18 10:00 10:00 14:05 RBC 5.76 H Hgb 18.1 H Hct 53.2 H RDW 14.3 H Sodium 146.2 H Chloride 108 H BUN 53 H Creatinine 1.27 H Est GFR (Non-Af Amer) 54 L Glucose 118 H Direct Bilirubin 0.6 H ALT < 6 L Alkaline Phosphatase 149 H Creatine Kinase 28 L Urine Ketones TRACE H Urine Blood MODERATE H Discharge - Discharge Clinical Impression: Dehydration, Weakness Failure to thrive Qualifiers: Failure to thrive age range: in adult Qualified Code(s): R62.7 - Adult failure to thrive Abdominal pain Qualifiers: Abdominal location: unspecified location Qualified Code(s): R10.9 - Unspecified abdominal pain Condition: Stable Disposition: ADMITTED INPATIENT Unit Admitted: Medical Floor
--- NOTE | 2018-04-23 12:57 | EKG REPORT ---
SEVERITY:- ABNORMAL ECG - ATRIAL FIBRILLATION, V-RATE 72-113 LAD, CONSIDER LEFT ANTERIOR FASCICULAR BLOCK PROBABLE ANTEROSEPTAL INFARCT, AGE INDETERM BORDERLINE T ABNORMALITIES, INFERIOR LEADS LATERAL LEADS ARE ALSO INVOLVED : Confirmed by: Jose Gandhi MD 23-Apr-2018 12:56:49
--- NOTE | 2018-04-23 13:19 | RADIOLOGY REPORT (SQ) ---
EXAM DESCRIPTION: CT ABD/PELVIS WITH IV ONLY COMPLETED DATE/TIME: 04/23/2018 1:02 pm REASON FOR STUDY: concern for appendicitis COMPARISON: None. TECHNIQUE: CT scan of the abdomen and pelvis performed using helical scanning technique with dynamic intravenous contrast injection. No oral contrast. Images reviewed with lung, soft tissue, and bone windows. Reconstructed coronal and sagittal MPR images reviewed. Delayed images for evaluation of the urinary system also acquired. All images stored on PACS. All CT scanners at this facility use dose modulation, iterative reconstruction, and/or weight based d osing when appropriate to reduce radiation dose to as low as reasonably achievable (ALARA). [facility]: Dose Right [facility]: CareDose [facility]: Dose Right [facility]: Teradose 4D [facility]: [employer] CONTRAST TYPE AND DOSE: contrast/concentration: Isovue 350.00 mg/ml; Total Contrast Delivered: 98.0 ml; Total Saline Delivered: 45.0 ml RENAL FUNCTION: GFR > 60. RADIATION DOSE: CT Rad equipment meets quality standard of care and radiation dose reduction techniq ues were employed. CTDIvol: 17.2 - 20.2 mGy. DLP: 2347 mGy-cm.. LIMITATIONS: None. FINDINGS: LOWER CHEST: Small bilateral pleural effusions. Bibasilar scarring or atelectasis. Three -vessel coronary artery disease. LIVER: Normal size. No masses. No dilated ducts. SPLEEN: Normal size. No focal lesions. PANCREAS: No masses. No significant calcifications. No adjacent inflammation or peripancreatic fluid collections. Pancreatic duct not dilated. GALLBLADDER: No identified stones by CT criteria. No inflammatory changes to suggest cholecystitis. ADRENAL GLANDS: No significant masses or asymmetry. RIGHT KIDNEY AND URETER: No solid masses. There is a large exophytic 8.5 cm cyst of the inferior sabrina e the right kidney. No significant calcifications. No hydronephrosis or hydroureter. LEFT KIDNEY AND URETER: No solid masses. No significant calcifications. No hydronephrosis or hydr oureter. AORTA AND VESSELS: No aneurysm. No dissection. Renal arteries, SMA, celiac without stenosis. RETROPERITONEUM: No retroperitoneal adenopathy, hemorrhage or masses. BOWEL AND PERITONEAL CAVITY: No masses or inflammatory changes. No free fluid or peritoneal masses. Sigmoid diverticulosis. APPENDIX: Normal. PELVIS: No mass. No free fluid. Normal bladder. Prostatomegaly. ABDOMINAL WALL: No masses. No hernias. BONES: Osteopenia with superior endplate deformity of the L4 vertebral body OTHER: No other significant finding. IMPRESSION: 1. Normal appendix in the right lower quadrant. 2. Large exophytic cyst of the inferior pole of the right kidney, measuring approximately 8.5 cm. L arge renal cysts are occasionally symptomatic. There are multiple additional smaller renal cysts chester aterally. 3. Age indeterminate superior endplate deformity of the L4 vertebral body. Correlate for acute poin t tenderness. 4. Diverticulosis without evidence of acute diverticulitis. 5. Small bilateral pleural effusions. 6. Coronary artery disease. TECHNICAL DOCUMENTATION: JOB ID: [id number] Quality ID # [id number]: Final reports with documentation of one or more dose reduction techniques (e.g., Au tomated exposure control, adjustment of the mA and/or kV according to patient size, use of iterative reconstruction technique) 2010 [employer]- All Rights Reserved Reading location - IP/workstation name: [email or web address]
[2018-04-23 14:35] LABS: APPEARANCE,URINE CLEAR; BILIRUBIN,URINE NEGATIVE (NEGATIVE); COLOR,URINE YELLOW; GLUCOSE, URINE NEGATIVE (NEGATIVE); KETONES,URINE TRACE mg/dL (NEGATIVE); LEUKOCYTE ESTERASE,URINE NEGATIVE (NEGATIVE); NITRITE,URINE NEGATIVE (NEGATIVE); PROTEIN,URINE NEGATIVE (NEGATIVE); URINE SPECIFIC GRAVITY 1.018; UROBILINOGEN,URINE NEGATIVE mg/dL (<2.0)
--- NOTE | 2018-04-23 16:54 | RADIOLOGY REPORT (SQ) ---
EXAM DESCRIPTION: CT HEAD WITHOUT COMPLETED DATE/TIME: 04/23/2018 4:43 pm REASON FOR STUDY: ams COMPARISON: 04/16/2018 TECHNIQUE: Axial images acquired through the brain without intravenous contrast. Images reviewed wi th bone, brain and subdural windows. Additional sagittal and coronal reconstructions were generated. Images stored on PACS. All CT scanners at this facility use dose modulation, iterative reconstruction, and/or weight based d osing when appropriate to reduce radiation dose to as low as reasonably achievable (ALARA). [facility]: Dose Right [facility]: CareDose [facility]: Dose Right [facility]: Teradose 4D [facility]: [employer] RADIATION DOSE: CT Rad equipment meets quality standard of care and radiation dose reduction techniq ues were employed. CTDIvol: 53.2 mGy. DLP: 1875 mGy-cm. mGy. LIMITATIONS: Motion artifact FINDINGS: VENTRICLES: Prominent ventricles secondary to involutional atrophy. CEREBRUM: No masses. No hemorrhage. No midline shift. No evidence for acute infarction. Few scatte red areas of low density in the white matter most likely chronic small vessel ischemic changes. CEREBELLUM: No masses. No hemorrhage. No alteration of density. No evidence for acute infarction. EXTRAAXIAL SPACES: No fluid collections. No masses. ORBITS AND GLOBE: No intra- or extraconal masses. Normal contour of globe without masses. CALVARIUM: No fracture. PARANASAL SINUSES: No fluid or mucosal thickening. SOFT TISSUES: No mass or hematoma. OTHER: No other significant finding. IMPRESSION: Involutional changes of aging with mild chronic microvascular ischemic change. No acute intracranial imaging findings. EVIDENCE OF ACUTE STROKE: NO. COMMENT: Quality ID # [id number]: Final reports with documentation of one or more dose reduction techniques (e.g., Automated exposure control, adjustment of the mA and/or kV according to patient size, use of iterative reconstruction technique) TECHNICAL DOCUMENTATION: JOB ID: [id number] [employer]- All Rights Reserved Reading location - IP/workstation name: [email or web address]
[2018-04-23] MEDS: NORMAL SALINE 1000 ML 1,000 ML IV PRN (23:47)
[2018-04-24 05:02] LABS: ABSOLUTE EOSINOPHILS # (AUTO) 0.1 10^3/uL (0.0-0.6); ABSOLUTE LYMPHOCYTES (AUTO) 2.7 10^3/uL (0.5-4.7); ABSOLUTE MONOCYTES (AUTO) 0.7 10^3/uL (0.1-1.4); ABSOLUTE NEUT (AUTO) 5.6 10^3/uL (1.7-8.2); BASOPHILS % (AUTO) 0.4 % (0-2); HEMATOCRIT 48.6 % (37.9-51.0); HEMOGLOBIN 16.4 g/dL (13.5-17.0); LYMPHOCYTES % (AUTO) 29.3 % (13-45); MEAN CORPUSCULAR HEMOGLOBIN 31.4 pg (27.0-33.4); MEAN CORPUSCULAR HGB CONC 33.7 g/dL (32.0-36.0); MEAN CORPUSCULAR VOLUME 93 fl (80-97); MONOCYTES % (AUTO) 7.7 % (3-13); PLATELET COUNT 149 10^3/uL (150-450); RED BLOOD COUNT 5.21 10^6/uL (4.35-5.55); RED CELL DISTRIBUTION WIDTH 14.4 % (11.5-14.0); SEGMENTED NEUTROPHILS % (AUTO) 61.6 % (42-78); TOTAL CELLS COUNTED % (AUTO) 100 %; WHITE BLOOD COUNT 9.1 10^3/uL (4.0-10.5)
[2018-04-24 05:26] LABS: ANION GAP 10 (5-19); BLOOD UREA NITROGEN 45 mg/dL (7-20); CALCIUM 8.9 mg/dL (8.4-10.2); CARBON DIOXIDE 27 mmol/L (22-30); CHLORIDE 114 mmol/L (98-107); GLUCOSE 90 mg/dL (75-110); SODIUM 150.9 mmol/L (137-145)
[2018-04-24] MEDS: NORMAL SALINE 1000 ML 1,000 ML IV PRN ×2 (06:32→12:56)
[2018-04-24] MEDS ORDERED: NORMAL SALINE 1000 ML 1,000 ML IV PRN (14:33)
[2018-04-24] MEDS ORDERED: GUAIFENESIN SYRP 200 MG/10 ML UDC PO PRN (14:37)
--- NOTE | 2018-04-24 14:45 | PDOC PROGRESS REPORT ---
Subjective Progress Note for:: 04/24/18 Subjective:: 87-year-old male admitted for failure to thrive dehydration. He is on IV fluids at 150 cc/h her sodium went up to 150. No acute events in the last 24 hours. Patient is afebrile. I discussed the care with Kalinabobby Mixon she agreed to put the place to the patient on hospice care. She prefer the patient to go back to [facility] assisted living with hospice care. Reason For Visit: ACUTE ENCEPHALOPATHY,SEVERE DEHYDRATION Physical Exam Vital Signs: Temp Pulse Resp BP Pulse Ox 97.4 F 146 H 26 H 102/82 92 04/24/18 12:15 04/24/18 12:15 04/24/18 12:15 04/24/18 12:15 04/24/18 07:48 Intake & Output 04/23/18 04/24/18 04/25/18 06:59 06:59 06:59 Intake Total 3000 960 Output Total 500 Balance 2500 960 Weight 84.1 kg General appearance: PRESENT: other - Patient has advanced dementia. Unable to maintain communication. He does keep on saying he wants to go back home. Head exam: PRESENT: atraumatic Eye exam: PRESENT: PERRLA Neck exam: ABSENT: carotid bruit, JVD, lymphadenopathy, thyromegaly Respiratory exam: PRESENT: other - Transmitted breath sounds. Cardiovascular exam: PRESENT: tachycardia GI/Abdominal exam: PRESENT: normal bowel sounds, soft. ABSENT: distended, guarding, mass, organolmegaly, rebound, tenderness Extremities exam: PRESENT: full ROM. ABSENT: calf tenderness, clubbing, pedal edema Neurological exam: PRESENT: alert, awake, oriented to person, oriented to place, oriented to time, oriented to situation, CN II-XII grossly intact. ABSENT: motor sensory deficit Psychiatric exam: PRESENT: other - Patient has advanced dementia. Results Laboratory Results: 04/24/18 04:37 04/24/18 04:37 04/23/18 04/23/18 04/24/18 10:00 17:05 04:37 WBC 9.1 RBC 5.21 Hgb 16.4 Hct 48.6 MCV 93 MCH 31.4 MCHC 33.7 RDW 14.4 H Plt Count 149 L Seg Neutrophils % 61.6 Lymphocytes % 29.3 Monocytes % 7.7 Eosinophils % 1.0 Basophils % 0.4 Absolute Neutrophils 5.6 Absolute Lymphocytes 2.7 Absolute Monocytes 0.7 Absolute Eosinophils 0.1 Absolute Basophils 0.0 Sodium Potassium Chloride Carbon Dioxide Anion Gap BUN Creatinine Est GFR ( Amer) Est GFR (Non-Af Amer) Glucose Serum Osmolality 331 H Calcium TSH 2.17 04/24/18 04:37 WBC RBC Hgb Hct MCV MCH MCHC RDW Plt Count Seg Neutrophils % Lymphocytes % Monocytes % Eosinophils % Basophils % Absolute Neutrophils Absolute Lymphocytes Absolute Monocytes Absolute Eosinophils Absolute Basophils Sodium 150.9 H Potassium 4.0 Chloride 114 H Carbon Dioxide 27 Anion Gap 10 BUN 45 H Creatinine 0.93 Est GFR ( Amer) > 60 Est GFR (Non-Af Amer) > 60 Glucose 90 Serum Osmolality Calcium 8.9 TSH 04/23/18 04/23/18 10:00 10:00 Creatine Kinase 28 L CK-MB (CK-2) 0.44 Troponin I < 0.012 Impressions: KUB X-Ray 04/23/18 10:33 IMPRESSION: Nonobstructive pattern of bowel gas with scattered gas and stool present to the rectum. No free air in the abdomen on spine radiographs. Chest X-Ray 04/23/18 10:36 IMPRESSION: Cardiomegaly without acute abnormality of the lungs in AP projection. Abdomen/Pelvis CT 04/23/18 11:57 IMPRESSION: 1. Normal appendix in the right lower quadrant. 2. Large exophytic cyst of the inferior pole of the right kidney, measuring approximately 8.5 cm. Large renal cysts are occasionally symptomatic. There are multiple additional smaller renal cysts bilaterally. 3. Age indeterminate superior endplate deformity of the L4 vertebral body. Correlate for acute point tenderness. 4. Diverticulosis without evidence of acute diverticulitis. 5. Small bilateral pleural effusions. 6. Coronary artery disease. Head CT 04/23/18 15:52 IMPRESSION: Involutional changes of aging with mild chronic microvascular ischemic change. No acute intracranial imaging findings. EVIDENCE OF ACUTE STROKE: NO. Assessment & Plan - Diagnosis (1) Hypernatremia Is this a current diagnosis for this admission?: Yes Plan: 04/24/2018 patient's sodium is 151 today he is on normal saline at 150 cc/h. Decreased the fluids to 50 cc/h I am going to check the comprehensive metabolic panel tomorrow. (2) Dehydration Is this a current diagnosis for this admission?: Yes Plan: 05/04/2018-patient was admitted for dehydration he received IV fluids normal saline at 150 cc/h. His blood pressure is improved to 102/82. Pulse rate is high because of agitation. Cut on the fluids to 50 cc/h. (3) Acute kidney injury Is this a current diagnosis for this admission?: Yes Plan: 04/24/2018-admission creatinine is 1.27 with IV fluids it is improved to 0.93. AK I most likely prerenal which is resolved. (4) Dementia Qualifiers: Dementia type: unspecified type Dementia behavioral disturbance: without behavioral disturbance Qualified Code(s): F03.90 - Unspecified dementia without behavioral disturbance Is this a current diagnosis for this admission?: Yes Plan: 04/24/2018 patient has advanced dementia. Family is agreed to refer him to hospice care. - Time Time Spent with patient: 15-24 minutes Medications reviewed and adjusted accordingly: Yes Anticipated discharge: Hospice
[2018-04-24] MEDS ORDERED: DILTIAZEM HCL 120 MG CAP.SR.24H PO ONE (16:00)
[2018-04-24] MEDS: RISPERIDONE 0.25 MG TABLET PO SCH ×2 (17:23→23:19)
[2018-04-24] MEDS: MEMANTINE HCL 10 MG TABLET PO SCH (17:26)
[2018-04-24] MEDS: APIXABAN 2.5 MG TABLET PO SCH (17:26)
[2018-04-24] MEDS: HYDROXYZINE PAMOATE 25 MG CAPSULE PO SCH ×2 (17:27→23:30)
[2018-04-24] MEDS: DIVALPROEX SODIUM 250 MG TABLET.DR PO SCH (17:31)
[2018-04-24] MEDS ORDERED: (PENDING PHARMACY ID) (Divalproex Sodium [Depakote] 500 MG) PO SCH (18:00)
[2018-04-24] MEDS ORDERED: (PENDING PHARMACY ID) (Hydroxyzine Hcl [Atarax 25 Mg Tablet] 25 MG) PO SCH (18:00)
--- NOTE | 2018-04-24 22:44 | PDOC H&P ---
History of Present Illness Admission Date/PCP: 04/23/18 15:21 Patient complains of: confusion History of Present Illness: HAWA TERESA is a 87 year old male with a PMH of Afib on Eliquis, COPD, hypertension, dementia and DM who was brought in from an [facility] due to increasing confusion and declining functionality. Patient reportedly has confusion on baseline and has been declining at the [facility] and has been also eating and drinking less. He continued to be more confused and in the ER, was restless and agitated. He was given Haldol which calmed him down. He had some abdominal tenderness in the ER and CT of the abdomen/pelvis was done but did not show acute issues. Upon encounter, patient is easily arousable but only mumbles and has incomprehensible words. He is hypothermic. Patient is non-verbal and attempts to contact sons, Roberto and Clifford (contact persons on EMR) have been unsuccessful. ER provider did spoke with one of patient's sons earlier and o btain history and verification of code status (DNR/DNI). Patient appears severely dehydrated on exam. Past Medical History Cardiac Medical History: Reports: Atrial Fibrillation, Congestive Heart Failure - Diastolic dysfunction, Coronary Artery Disease, DVT - Left lower extremity, Myocardial Infarction, Hyperlipidema, Hypertension Pulmonary Medical History: Reports: Chronic Obstructive Pulmonary Disease (COPD) Endocrine Medical History: Reports: Diabetes Mellitus Type 2 Psychiatric Medical History: Reports: Dementia, Depression Past Surgical History Past Surgical History: Reports: Cardiac Catheterization - 2009, Cholecystectomy, Coronary Stent - 2009 Social History Smoking Status: Unknown if Ever Smoked Frequency of Alcohol Use: None Hx Recreational Drug Use: No Hx Prescription Drug Abuse: No Family History Family History: Reviewed & Not Pertinent, Malignancy Parental Family History Reviewed: No - ams Children Family History Reviewed: No Sibling(s) Family History Reviewed.: No Medication/Allergy Home Medications: Furosemide [Lasix] 40 mg PO DAILY PRN 11/28/14 Acetaminophen 650 mg PO Q4H PRN 08/30/15 Fluticasone Propionate [Flovent Diskus 50 mcg] 1 puff IH DAILY 08/30/15 Guaifenesin [Robitussin Syrup 200 mg/10 ml Ud Cup] 10 ml PO Q4H PRN 08/30/15 Apixaban [Eliquis 2.5 mg Tablet] 1 tab PO BID 01/19/16 Diltiazem HCl [Cardizem Cd 120 mg Capsule] 1 cap PO DAILY 01/19/16 Fluphenazine HCl 1 mg PO DAILY 01/19/16 Memantine HCl [Namenda 10 mg Tablet] 1 tab PO BID 01/19/16 Metformin HCl 500 mg PO DAILY 01/19/16 Potassium Chloride [Klor-Con 10 Meq Capsule ER] 2 tab PO DAILY 01/19/16 Pravastatin Sodium 40 mg PO QHS 01/19/16 Sertraline HCl 50 mg PO DAILY 01/19/16 Cefuroxime Axetil [Ceftin 500 mg Tablet] 1 tab PO BID #14 tablet 01/20/16 Flu Vacc [id number] Up/Pf [Fluzone Adlt Quad [id number] Vac 0.5 ml Syr] 0.5 ml IM .AT DISCHARGE PRN disp.syrin 01/20/16 Hydroxyzine HCl 10 mg PO Q6HP PRN #0 01/20/16 Doxycycline Hyclate 100 mg PO BID #14 capsule 02/02/17 Buspirone HCl [Buspar 10 mg Tablet] 10 mg PO QHS #30 tab 05/11/17 Buspirone HCl [Buspar 5 mg Tablet] 1 tab PO QAM #30 tab 05/11/17 Carbamazepine [Tegretol 200 Mg Tablet] 200 mg PO BID #60 tablet 05/11/17 Risperidone [Risperdal 0.25 Mg Tablet] 0.25 mg PO BID #60 tablet 05/11/17 Divalproex Sodium [Depakote] 500 mg PO BID #30 tablet. 11/20/17 Cephalexin Monohydrate [Keflex 500 mg Capsule] 500 mg PO BID #20 capsule 03/15/18 Nitrofurantoin/Nitrofuran Mac [Macrobid 100 mg Capsule] 1 tab PO BID #20 capsule 04/16/18 Allergies/Adverse Reactions: codeine [Codeine] Allergy (Verified 04/23/18 11:43) NSAIDS (Non-Steroidal Anti-Inflamma Allergy (Verified 04/23/18 11:43) Penicillins Allergy (Verified 04/23/18 11:43) Review of Systems ROS unobtainable: Due to mental status Physical Exam Vital Signs: Temp Pulse Resp BP Pulse Ox 98.4 F 11 L 108/72 97 04/23/18 11:24 04/23/18 14:00 04/23/18 14:01 04/23/18 13:01 Intake & Output 04/22/18 04/23/18 04/24/18 06:59 06:59 06:59 Intake Total 1000 Balance 1000 Weight 190 lb 7.67 oz General appearance: PRESENT: no acute distress, thin Head exam: PRESENT: atraumatic, normocephalic Eye exam: PRESENT: conjunctiva pink, EOMI, PERRLA. ABSENT: scleral icterus Ear exam: PRESENT: normal external ear exam Mouth exam: PRESENT: moist, tongue midline Neck exam: ABSENT: carotid bruit, JVD, lymphadenopathy, thyromegaly Respiratory exam: PRESENT: clear to auscultation chester. ABSENT: rales, rhonchi, wheezes Pulses: PRESENT: normal dorsalis pedis pul GI/Abdominal exam: PRESENT: normal bowel sounds, soft, tenderness - he does grimace on palpation of the epigastric and hypogastric areas. ABSENT: distended, guarding, mass, organolmegaly, rebound Rectal exam: PRESENT: deferred Neurological exam: PRESENT: altered Results Laboratory Results: 04/23/18 10:00 04/23/18 10:00 04/23/18 04/23/18 04/23/18 10:00 10:00 10:36 WBC 8.9 RBC 5.76 H Hgb 18.1 H Hct 53.2 H MCV 92 MCH 31.4 MCHC 34.0 RDW 14.3 H Plt Count 182 Seg Neutrophils % 60.7 Lymphocytes % 29.8 Monocytes % 8.5 Eosinophils % 0.6 Basophils % 0.4 Absolute Neutrophils 5.4 Absolute Lymphocytes 2.7 Absolute Monocytes 0.8 Absolute Eosinophils 0.0 Absolute Basophils 0.0 Sodium 146.2 H Potassium 4.9 Chloride 108 H Carbon Dioxide 30 Anion Gap 8 BUN 53 H Creatinine 1.27 H Est GFR ( Amer) > 60 Est GFR (Non-Af Amer) 54 L Glucose 118 H Lactic Acid 1.8 Calcium 9.8 Total Bilirubin 0.9 AST 35 ALT < 6 L Alkaline Phosphatase 149 H Total Protein 8.0 Albumin 3.8 Urine Color Urine Appearance Urine pH Ur Specific [place] Urine Protein Urine Glucose (UA) Urine Ketones Urine Blood Urine Nitrite Ur Leukocyte Esterase Urine WBC (Auto) Urine RBC (Auto) 04/23/18 14:05 WBC RBC Hgb Hct MCV MCH MCHC RDW Plt Count Seg Neutrophils % Lymphocytes % Monocytes % Eosinophils % Basophils % Absolute Neutrophils Absolute Lymphocytes Absolute Monocytes Absolute Eosinophils Absolute Basophils Sodium Potassium Chloride Carbon Dioxide Anion Gap BUN Creatinine Est GFR ( Amer) Est GFR (Non-Af Amer) Glucose Lactic Acid Calcium Total Bilirubin AST ALT Alkaline Phosphatase Total Protein Albumin Urine Color YELLOW Urine Appearance CLEAR Urine pH 5.0 Ur Specific [place] 1.018 Urine Protein NEGATIVE Urine Glucose (UA) NEGATIVE Urine Ketones TRACE H Urine Blood MODERATE H Urine Nitrite NEGATIVE Ur Leukocyte Esterase NEGATIVE Urine WBC (Auto) 4 Urine RBC (Auto) 15 04/23/18 04/23/18 10:00 10:00 Creatine Kinase 28 L CK-MB (CK-2) 0.44 Troponin I < 0.012 Impressions: KUB X-Ray 04/23/18 10:33 IMPRESSION: Nonobstructive pattern of bowel gas with scattered gas and stool present to the rectum. No free air in the abdomen on spine radiographs. Chest X-Ray 04/23/18 10:36 IMPRESSION: Cardiomegaly without acute abnormality of the lungs in AP projection. Abdomen/Pelvis CT 04/23/18 11:57 IMPRESSION: 1. Normal appendix in the right lower quadrant. 2. Large exophytic cyst of the inferior pole of the right kidney, measuring approximately 8.5 cm. Large renal cysts are occasionally symptomatic. There are multiple additional smaller renal cysts bilaterally. 3. Age indeterminate superior endplate deformity of the L4 vertebral body. Correlate for acute point tenderness. 4. Diverticulosis without evidence of acute diverticulitis. 5. Small bilateral pleural effusions. 6. Coronary artery disease. Assessment & Plan - Diagnosis (1) Acute encephalopathy Is this a current diagnosis for this admission?: Yes Plan: Likely metabolic in nature from severe dehydrstion, acute kidney injury, and hypernatremia on top of worsening dementia. (2) Dehydration Is this a current diagnosis for this admission?: Yes Plan: Patient does appear severely dehydrated. He has been given a liter of bolus in the ER. Will give another bolus and switch to 150 cc/hr. (3) Acute kidney injury Is this a current diagnosis for this admission?: Yes Plan: Likely prerenal. Creatinine is elevated from baseline. IV fluids as mentioned. Repeat BMP tomorrow. (4) Hypernatremia Is this a current diagnosis for this admission?: Yes Plan: Liekly related to dehydration. IV fluids as per #2. Will also check s. osm. - Time Time Spent: 30 to 50 Minutes
[2018-04-24] MEDS: BUSPIRONE HCL 10 MG TABLET PO SCH (23:19)
[2018-04-25] MEDS ORDERED: MORPHINE SULFATE 10 MG/ML INJ SUBCUT PRN ×2 (00:19)
[2018-04-25] MEDS: MORPHINE SULFATE 10 MG/ML INJ SUBCUT PRN ×2 (00:47→07:30)
[2018-04-25 06:33] LABS: ABSOLUTE EOSINOPHILS # (AUTO) 0.2 10^3/uL (0.0-0.6); ABSOLUTE LYMPHOCYTES (AUTO) 2.4 10^3/uL (0.5-4.7); ABSOLUTE MONOCYTES (AUTO) 0.5 10^3/uL (0.1-1.4); ABSOLUTE NEUT (AUTO) 3.9 10^3/uL (1.7-8.2); BASOPHILS % (AUTO) 0.6 % (0-2); EOSINOPHILS % (AUTO) 2.2 % (0-6); HEMATOCRIT 44.4 % (37.9-51.0); MEAN CORPUSCULAR HEMOGLOBIN 31.3 pg (27.0-33.4); MEAN CORPUSCULAR HGB CONC 33.8 g/dL (32.0-36.0); MEAN CORPUSCULAR VOLUME 93 fl (80-97); MONOCYTES % (AUTO) 7.3 % (3-13); PLATELET COUNT 129 10^3/uL (150-450); RED BLOOD COUNT 4.79 10^6/uL (4.35-5.55); RED CELL DISTRIBUTION WIDTH 14.4 % (11.5-14.0); SEGMENTED NEUTROPHILS % (AUTO) 55.9 % (42-78); TOTAL CELLS COUNTED % (AUTO) 100 %
[2018-04-25 06:47] LABS: ALBUMIN 2.8 g/dL (3.5-5.0); ANION GAP 6 (5-19); BLOOD UREA NITROGEN 36 mg/dL (7-20); CALCIUM 8.8 mg/dL (8.4-10.2); CARBON DIOXIDE 26 mmol/L (22-30); CHLORIDE 116 mmol/L (98-107); GLUCOSE 85 mg/dL (75-110); POTASSIUM 3.6 mmol/L (3.6-5.0); SODIUM 148.4 mmol/L (137-145); TOTAL PROTEIN 5.7 g/dL (6.3-8.2)
[2018-04-25 06:48] LABS: ALANINE AMINOTRANSFERASE 24 U/L (21-72); ALKALINE PHOSPHATASE 111 U/L (38-126); ASPARTATE AMINO TRANSFERASE 26 U/L (17-59); BILIRUBIN,DIRECT 0.3 mg/dL (0.0-0.4); BILIRUBIN,TOTAL 0.5 mg/dL (0.2-1.3)
[2018-04-25] MEDS ORDERED: BUSPIRONE HCL 10 MG TABLET PO SCH (08:00)
[2018-04-25] MEDS: APIXABAN 2.5 MG TABLET PO SCH ×2 (09:36→17:39)
[2018-04-25] MEDS: HYDROXYZINE PAMOATE 25 MG CAPSULE PO SCH ×4 (09:36→21:10)
[2018-04-25] MEDS: DIVALPROEX SODIUM 250 MG TABLET.DR PO SCH ×2 (09:36→21:10)
[2018-04-25] MEDS: RISPERIDONE 0.25 MG TABLET PO SCH ×2 (09:37→21:10)
[2018-04-25] MEDS: MEMANTINE HCL 10 MG TABLET PO SCH ×2 (09:37→17:39)
[2018-04-25] MEDS ORDERED: DILTIAZEM HCL 120 MG CAP.SR.24H PO SCH ×2 (10:00)
--- NOTE | 2018-04-25 13:34 | PDOC TRANSFER SUMMARY ---
General - Admit/Disc Date/PCP Admission Date/Primary Care Provider: 04/23/18 15:21 Discharge Date: 04/25/18 - Discharge Diagnosis (1) Hypernatremia Is this a current diagnosis for this admission?: Yes Summary: 04/24/2018 patient's sodium is 151 today he is on normal saline at 150 cc/h. Decreased the fluids to 50 cc/h I am going to check the comprehensive metabolic panel tomorrow. 04/25/2018-patient was admitted for hyponatremia secondary to dehydration he was given normal saline at 150 cc/h until yesterday and it was decreased to 50 cc/h sodium level is is improved to 148. I had a discussion with the patient's family yesterday because of the comorbidities and advanced dementia patient's family requested that the patient to be transferred back to the assisted living with hospice care. (2) Dehydration Is this a current diagnosis for this admission?: Yes Summary: 04/24/2018-patient was admitted for dehydration he received IV fluids normal saline at 150 cc/h. His blood pressure is improved to 102/82. Pulse rate is high because of agitation. Cut on the fluids to 50 cc/h. 04/25/2018 patient was admitted with severe high dehydration with IV fluids and dehydration was resolved blood pressure today is 105/75 patient is comfortably in the bed not in fluid overload. Going to go back to the assisted living under hospice care. (3) Acute kidney injury Is this a current diagnosis for this admission?: Yes Summary: 04/24/2018-admission creatinine is 1.27 with IV fluids it is improved to 0.93. AK I most likely prerenal which is resolved. 04/25/2018-since admission creatinine is 1.27 and creatinine is improved 2.76 today. Acute kidney injury which is prerenal secondary to dehydration resolved. (4) Dementia Is this a current diagnosis for this admission?: Yes Summary: 04/24/2018 patient has advanced dementia. Family is agreed to refer him to hospice care. 04/25/2017 patient has advanced dementia alert but not communicative. Plan is to continue the present medications when she goes to hospice care. - Additional Information Resuscitation Status: Do Not Resuscitate Discharge Diet: Cardiac Discharge Activity: Activity As Tolerated Home Medications: Acetaminophen 650 mg PO Q4H PRN 08/30/15 Guaifenesin [Robitussin Syrup 200 mg/10 ml Ud Cup] 10 ml PO Q4H PRN 08/30/15 Apixaban [Eliquis 2.5 mg Tablet] 5 tab PO BID 01/19/16 Diltiazem HCl [Cardizem Cd 120 mg Capsule] 1 cap PO DAILY 01/19/16 Memantine HCl [Namenda 10 mg Tablet] 1 tab PO BID 01/19/16 Buspirone HCl [Buspar 10 mg Tablet] 10 mg PO QHS #30 tab 05/11/17 Buspirone HCl [Buspar 5 mg Tablet] 1 tab PO QAM #30 tab 05/11/17 Risperidone [Risperdal 0.25 mg Tablet] 0.25 mg PO BID #60 tablet 05/11/17 Divalproex Sodium [Depakote] 500 mg PO BID #30 tablet. 11/20/17 Hydroxyzine HCl [Atarax 25 mg Tablet] 25 mg PO QID 04/23/18 History of Present Illness Admission Date/PCP: 04/23/18 15:21 with a PMH of Afib on Eliquis, COPD, hypertension, dementia and DM who was brought in from an [facility] due to increasing confusion and declining functionality. Patient reportedly has confusion on baseline and has been declining at the [facility] and has been also eating and drinking less. He continued to be more confused and in the ER, was restless and agitated. He was given Haldol which calmed him down. He had some abdominal tenderness in the ER and CT of the abdomen/pelvis was done but did not show acute issues. Upon encounter, patient is easily arousable but only mumbles and has incomprehensible words. He is hypothermic. Patient is non-verbal and attempts to contact linda, Roberto and Clifford (contact persons on EMR) have been unsuccessful. ER provider did spoke with one of patient's sons earlier and obtain history and verification of code status (DNR/DNI). Patient appears severely dehydrated on exam. History of Present Illness: HAWA TERESA is a 87 year old male Physical Exam Vital Signs: Temp Pulse Resp BP Pulse Ox 97.6 F 115 H 20 105/75 90 L 04/25/18 12:00 04/25/18 12:00 04/25/18 12:00 04/25/18 12:00 04/25/18 12:00 Intake & Output 04/24/18 04/25/18 04/26/18 06:59 06:59 06:59 Intake Total 3000 1960 Output Total 500 560 Balance 2500 1400 Weight 84.1 kg 88.1 kg General appearance: PRESENT: no acute distress Head exam: PRESENT: atraumatic Eye exam: PRESENT: PERRLA Mouth exam: PRESENT: moist Neck exam: ABSENT: carotid bruit, JVD, lymphadenopathy, thyromegaly Respiratory exam: PRESENT: clear to auscultation chester. ABSENT: rales, rhonchi, wheezes Cardiovascular exam: PRESENT: RRR. ABSENT: diastolic murmur, rubs, systolic murmur GI/Abdominal exam: PRESENT: normal bowel sounds, soft. ABSENT: distended, guarding, mass, organolmegaly, rebound, tenderness Extremities exam: PRESENT: full ROM. ABSENT: calf tenderness, clubbing, pedal edema Neurological exam: PRESENT: alert - Advanced dementia not oriented to time place or person., other - Advanced dementia Psychiatric exam: PRESENT: other - She has advanced dementia unable to assess the mood. Results Laboratory Results: 04/25/18 06:16 04/25/18 06:16 04/25/18 04/25/18 06:16 06:16 WBC 7.0 RBC 4.79 Hgb 15.0 Hct 44.4 MCV 93 MCH 31.3 MCHC 33.8 RDW 14.4 H Plt Count 129 L Seg Neutrophils % 55.9 Lymphocytes % 34.0 Monocytes % 7.3 Eosinophils % 2.2 Basophils % 0.6 Absolute Neutrophils 3.9 Absolute Lymphocytes 2.4 Absolute Monocytes 0.5 Absolute Eosinophils 0.2 Absolute Basophils 0.0 Sodium 148.4 H Potassium 3.6 Chloride 116 H Carbon Dioxide 26 Anion Gap 6 BUN 36 H Creatinine 0.76 Est GFR ( Amer) > 60 Est GFR (Non-Af Amer) > 60 Glucose 85 Calcium 8.8 Magnesium 2.2 Total Bilirubin 0.5 AST 26 ALT 24 Alkaline Phosphatase 111 Total Protein 5.7 L Albumin 2.8 L 04/23/18 14:05 Catheterized Urine Urine Culture - Final NO GROWTH 2 DAYS 04/23/18 04/23/18 10:00 10:00 Creatine Kinase 28 L CK-MB (CK-2) 0.44 Troponin I < 0.012 Impressions: KUB X-Ray 04/23/18 10:33 IMPRESSION: Nonobstructive pattern of bowel gas with scattered gas and stool present to the rectum. No free air in the abdomen on spine radiographs. Chest X-Ray 04/23/18 10:36 IMPRESSION: Cardiomegaly without acute abnormality of the lungs in AP projection. Abdomen/Pelvis CT 04/23/18 11:57 IMPRESSION: 1. Normal appendix in the right lower quadrant. 2. Large exophytic cyst of the inferior pole of the right kidney, measuring approximately 8.5 cm. Large renal cysts are occasionally symptomatic. There are multiple additional smaller renal cysts bilaterally. 3. Age indeterminate superior endplate deformity of the L4 vertebral body. Correlate for acute point tenderness. 4. Diverticulosis without evidence of acute diverticulitis. 5. Small bilateral pleural effusions. 6. Coronary artery disease. Head CT 04/23/18 15:52 IMPRESSION: Involutional changes of aging with mild chronic microvascular ischemic change. No acute intracranial imaging findings. EVIDENCE OF ACUTE STROKE: NO. Transfer Plan - Time Spent with Patient Time spent with patient: Less than 30 Minutes Qualifiers - * PATIENT BEING DISCHARGED WITH ANY OF THE FOLLOWING DIAGNOSIS: No VTE patient discharged on overlapping Therapy?: Yes
[2018-04-25 20:12] VITALS: BP 110/64
[2018-04-25] MEDS: BUSPIRONE HCL 10 MG TABLET PO SCH (21:10)
== END 2018-04-25 21:45 | DRG 641 ==
LOC: ER 09:53 → EH 15:21 → 4N 20:30
PROVIDERS: ADMIT Internal Medicine; ATTEND Internal Medicine
DX: E87.0 Hyperosmolality and hypernatremia (principal); N17.9 Acute kidney failure, unspecified; I50.30 Unspecified diastolic (congestive) heart failure; G93.40 Encephalopathy, unspecified; E86.0 Dehydration; I48.91 Unspecified atrial fibrillation; J44.9 Chronic obstructive pulmonary disease, unspecified; I11.0 Hypertensive heart disease with heart failure; E11.9 Type 2 diabetes mellitus without complications; F03.90 Unspecified dementia, unspecified severity, without behavioral disturbance, psychotic disturbance, mood disturbance, and anxiety; E78.5 Hyperlipidemia, unspecified; R68.0 Hypothermia, not associated with low environmental temperature; Z66 Do not resuscitate; I25.10 Atherosclerotic heart disease of native coronary artery without angina pectoris; F32.9 Major depressive disorder, single episode, unspecified; R62.7 Adult failure to thrive; R00.0 Tachycardia, unspecified; Z79.01 Long term (current) use of anticoagulants; Z95.5 Presence of coronary angioplasty implant and graft; Z86.718 Personal history of other venous thrombosis and embolism; I25.2 Old myocardial infarction; Z79.84 Long term (current) use of oral hypoglycemic drugs; Z68.24 Body mass index [BMI] 24.0-24.9, adult
CPT/HCPCS: 36415; 70450; 71045; 74018; 74177; 80048; 80053; 81001; 82550; 82553; 83605; 83735; 83930; 84443; 84484; 85025; 87040; 87086; 93005; 93010; 96361; 96374; 99285; J1630; J2270; J3490; J7030